=== PATIENT | male | born 1945 | race Caucasian/White ===

== ENCOUNTER 2020-05-15 10:34 | Outpatient (REF) | payer MEDICARE, OTHER, SELFPAY ==
--- NOTE | 2020-05-15 10:40 | CT_ITS ---
EXAMINATION: CT ABDOMEN AND PELVIS WITHOUT CONTRAST CLINICAL INFORMATION: Abdominal pain COMPARISON: None TECHNIQUE: Multidetector volumetric imaging was performed from the superior aspect of the liver through the pubic symphysis. Sagittal and coronal reformatted images were obtained on the technologist's workstation. This CT examination was performed using dose optimization techniques as appropriate, variously including the following: *Automated exposure control *Adjustment of mA and/or kV according to patient size (this includes techniques or standardized protocols for targeted exams where dose is matched to indication/reason for exam; i.e. extremities or head) *Use of iterative reconstruction technique DLP: 7-1 mGy-cm FINDINGS: LUNG BASES: The visualized lung bases are unremarkable. LIVER, GALLBLADDER, AND BILIARY TREE: There are multiple low-attenuation liver lesions suggestive of cysts. The liver is otherwise unremarkable. There are gallstones in the gallbladder. There is no biliary duct dilatation. PANCREAS: Unremarkable. SPLEEN: The spleen is slightly enlarged measuring 14 cm in length. ADRENAL GLANDS: Unremarkable. KIDNEYS AND URETERS: There are probable bilateral renal peripelvic cysts. There is a cortical cyst exophytic to the posterior upper pole of the right kidney. BLADDER: Not optimally distended. GASTROINTESTINAL TRACT: There is severe diverticulosis of the colon. There is wall thickening of the sigmoid colon and it is difficult to exclude mild diverticulitis. No evidence of obstruction perforation or abscess is seen. The small bowel is normal. The appendix is normal. The stomach is normal. ABDOMINAL WALL: There are small umbilical and left inguinal hernias containing fat. LYMPH NODES: Normal. VASCULAR: There is evidence of atherosclerotic disease. PELVIC VISCERA: Unremarkable. OSSEOUS STRUCTURES: There are degenerative changes of the spine and mild scoliosis. CT/CT abdomen pelvis wo con IMPRESSION: Severe diverticular disease of the colon. There is wall thickening of the sigmoid colon and it is difficult to exclude mild diverticulitis. Liver and bilateral renal cysts. Gallstones.
== END 2020-05-15 10:35 | disposition home or self-care (01) ==
LOC: HO.CT 10:34
PROVIDERS: PCP Internal Medicine; Visit Provider Internal Medicine
DX: R10.0 Acute abdomen (principal)
CPT/HCPCS: 74176

== ENCOUNTER 2020-07-02 08:22 | Day surgery (SDC) | payer MEDICARE, OTHER, SELFPAY ==
[2020-06-26 15:15] VITALS: BMI 35.9
--- NOTE | 2020-06-27 14:47 | HO.ANESPROP2 ---
Documented by User: Carina Blackwell 06/27/20 14:50 HPI - Anesthesia Eval Consult details Narrative: 74yo M for Upper Endoscopy and Colonoscopy Seen by cardiology 06/26/20 stable from coronary perspective [facility] Past Medical History Medical History (Updated 07/02/20 @ 09:11 by Nanda Ivory) Arthritis CAD (coronary artery disease) Diverticulosis Elevated cholesterol [place] (hard of hearing) HTN (hypertension) Myocardial infarction On beta leif at home Surgical History Surgical History H/O colonoscopy History of back surgery History of excision of pilonidal cyst History of heart artery stent History of PTCA History of vasectomy Social History Social History Are you a primary child care supervisor to a significant other at home: No Do you presently have visiting nurse or other home services: No Smoking Status: Former smoker Smoked in Last 30 Days: No Smoking Quit Date: 1985 Use of substances other than those prescribed or required for medical reasons: No Have you been hit, kicked, punched, or otherwise hurt by someone within the past year? If so, by whom?: No Advance Directives Information Provided: No Recently lost weight without trying: No Meds Allergies Allergy/AdvReac Type Severity Reaction Status Date / Time No Known Allergies Allergy Verified 06/26/20 15:21 [No Known Allergies*] Home Medications Medication Instructions Recorded Confirmed Type L. acidophilus-L. rhamnosus 1 cap PO DAILY 06/26/20 06/26/20 History [Probiotic] amlodipine 5 mg PO DAILY 06/26/20 06/26/20 History aspirin [Aspirin Low Dose] 81 mg PO DAILY 06/26/20 06/26/20 History atenolol 25 mg PO BID 06/26/20 07/02/20 History hydrochlorothiazide 25 mg PO DAILY 06/26/20 06/26/20 History lisinopril 40 mg PO DAILY 06/26/20 06/26/20 History multivitamin 1 tab PO DAILY 06/26/20 06/26/20 History omega-3 fatty acids-vitamin E 1 cap PO DAILY 06/26/20 06/26/20 History [Fish Oil] omeprazole 20 mg PO DAILY 06/26/20 06/26/20 History simvastatin 40 mg PO BEDTIME 06/26/20 06/26/20 History trazodone 50 mg PO BEDTIME 06/26/20 06/26/20 History Exam Exam Date and Time: June 27, 2020 144 Height,Weight and Vital Signs: Height 5 ft 8 in Weight 107.048 kg Narrative Narrative: EKG 06/26/20 SR@65, possible old SD and one PVC, minor nonspecific ST-T changes ECHO 06/2019 LV size is nml Mild conc LVH LV sys function is normal with an EF between 60-65% Indeterminate diastolic function LA mildly dilated Assessment and Plan Assessment Anesthesia Assessment: Chart Reviewed Documented by User: Nanda Ivory 07/02/20 09:12 [facility] Past Medical History Medical History (Updated 07/02/20 @ 09:11 by Nanda Ivory) Arthritis CAD (coronary artery disease) Diverticulosis Elevated cholesterol [place] (hard of hearing) HTN (hypertension) Myocardial infarction On beta leif at home Family History Family history of problems with anesthesia: No Surgical History Surgical History H/O colonoscopy History of back surgery History of excision of pilonidal cyst History of heart artery stent History of PTCA History of vasectomy History of Problems with Anesthesia: No Social History Social History Are you a primary child care supervisor to a significant other at home: No Do you presently have visiting nurse or other home services: No Smoking Status: Former smoker Smoked in Last 30 Days: No Smoking Quit Date: 1985 Use of substances other than those prescribed or required for medical reasons: No Have you been hit, kicked, punched, or otherwise hurt by someone within the past year? If so, by whom?: No Advance Directives Information Provided: No Recently lost weight without trying: No Meds Allergies Allergy/AdvReac Type Severity Reaction Status Date / Time No Known Allergies Allergy Verified 06/26/20 15:21 [No Known Allergies*] Home Medications Medication Instructions Recorded Confirmed Type L. acidophilus-L. rhamnosus 1 cap PO DAILY 06/26/20 06/26/20 History [Probiotic] amlodipine 5 mg PO DAILY 06/26/20 06/26/20 History aspirin [Aspirin Low Dose] 81 mg PO DAILY 06/26/20 06/26/20 History atenolol 25 mg PO BID 06/26/20 07/02/20 History hydrochlorothiazide 25 mg PO DAILY 06/26/20 06/26/20 History lisinopril 40 mg PO DAILY 06/26/20 06/26/20 History multivitamin 1 tab PO DAILY 06/26/20 06/26/20 History omega-3 fatty acids-vitamin E 1 cap PO DAILY 06/26/20 06/26/20 History [Fish Oil] omeprazole 20 mg PO DAILY 06/26/20 06/26/20 History simvastatin 40 mg PO BEDTIME 06/26/20 06/26/20 History trazodone 50 mg PO BEDTIME 06/26/20 06/26/20 History Exam Height,Weight and Vital Signs: Vital Signs Temp Pulse Resp BP Pulse Ox 07/02/20 08:43 97.4 F 60 16 140/86 H 96 Airway Mallampati Class: II TM Dist: >3cm Neck ROM: Full Heart: RRR Lungs: CTAB Assessment and Plan Assessment Anesthesia Assessment: Anesthesia Plan Discussed and Chart Reviewed Final Anesthetic Review ASA Class: III Final Preanesthetic Review: No Changes in Pt Med Stat, Meds/Allgs Chart Reviewed, Consent Obtained/Reviewed and Anes Risks/Benef Reviewed Patient Risk: Intermediate Procedure Risk: Low Assessment/Block/Sedation in SS: Assess/Block/Sedation-SS Anesthetic Plan Anesthetic Plan: MAC: Disposition: Standard PACU
[2020-07-02 08:43] VITALS: BP 140/86; PULSE 60; RESP 16; TEMP 36.3; O2SAT 96
--- NOTE | 2020-07-02 08:55 | PC.NURSE ---
Patient laying on left side for fleet enema. Patient attempted to use restroom with no results. Fleet administered. Tolerated well.
--- NOTE | 2020-07-02 09:04 | PC.NURSE ---
Patient used restroom following fleet enema. Output yellow liquid.
[2020-07-02] MEDS: Lactated Ringers 1,000 ML 100 ML IVCONT (09:08)
--- NOTE | 2020-07-02 09:09 | MHC.SHP ---
Pre-Procedural Eval Section B Chief Complaint: reflux Details of Present Illness: gerd, abnl ct scan colon Relevant Family History (Specify if Yes): No Relevant Social History: None Present Medications: see Short Stay Collaborative assessment Medical History: Significant History (see H&P no changes) History of Previous Operations: No relevant previous surgery Allergies: Allergies Allergy/AdvReac Type Severity Reaction Status Date / Time No Known Allergies Allergy Verified 06/26/20 15:21 [No Known Allergies*] Review of Systems Sugical H&P ROS: Negative: Constitution, Cardiovascular, Respiratory, Neurological, Psychiatric, Hem-Onc, Allergic/Immunologic, Gastrointestinal, Genitourinary, Musculoskeletal, Integumentary, Endocrine and Eyes/Ears/Nose/Throat Exam Surgical H&P Exam: Normal: HEENT, Normal: Heart, Normal: Lungs, Normal: Extremities, Normal: Abdomen, Normal: Skin and Normal: Neurological Plan Diagnosis/Plan: Unchanged I have reviewed the history and physical and performed a pertinent physical examination on my patient. No changes have occurred unless specified.
[2020-07-02] MEDS: Sodium Phosphate,Mono-Dibasic 133 ML ENEMA PR (09:11)
[2020-07-02 09:47] VITALS: BP 111/60; PULSE 51; RESP 12; TEMP 36.3; O2SAT 96
--- NOTE | 2020-07-02 09:57 | PM.OP ---
Brief Operative Note Date of Service: 07/02/20 Pre-op diagnosis: gerd, abnl ct scan Post-op diagnosis: same (diverticulosis) Procedure: egd colonoscopy Surgeon: Lalito Chung Anesthesia: MAC Estimated blood loss (mL): 5 Pathology: other (antral biopsies, ejg gastric polyps, ) Condition: stable Disposition: PACU
[2020-07-02 10:02] VITALS: BP 133/81; PULSE 56; RESP 20; O2SAT 97
--- NOTE | 2020-07-02 12:06 | HO.POSTANES ---
Post Anesthesia Evaluation Post Anesthesia Evaluation Vital Signs: Vital Signs Temp Pulse Resp BP Pulse Ox 07/02/20 10:02 97.4 F 56 20 133/81 97 07/02/20 09:47 97.4 F 51 12 111/60 96 07/02/20 08:43 97.4 F 60 16 140/86 H 96 Anesthesia: Monitored Mental Status: Awake Pain Control: Satisfactory Nausea/Vomiting: None Hydration: Adequate Anesthesia-Related Issues: No Anes. Related Issues
--- NOTE | 2020-07-02 19:40 | OP_ITS ---
SURGEON: Lalito Chung MD INDICATIONS: 1. Gastroesophageal reflux disease. 2. Abnormal CT scan of the colon and family history of colon cancer. PREOPERATIVE DIAGNOSIS: POSTOPERATIVE DIAGNOSIS: PROCEDURE PERFORMED: ESTIMATED BLOOD LOSS: COMPLICATIONS: ANESTHESIA: ASSISTANTS: SPECIMENS: PROCEDURES PERFORMED: 1. Upper endoscopy with biopsy. 2. Colonoscopy to the terminal ileum. MEDICATIONS: Monitored anesthesia care. DESCRIPTION OF PROCEDURE: History and physical performed. The risks and benefits of the procedure were explained to the patient. Informed consent was obtained. The patient was placed in left lateral decubitus position. A digital rectal exam was performed and was found to be normal. The Olympus pediatric video gastroscope was introduced into the esophagus, stomach, and duodenum. Examination was performed. The scope was removed. He was repositioned for colonoscopy. The above-mentioned rectal exam was performed. The Olympus pediatric video colonoscope was introduced into the rectum and advanced to the cecum without difficulty. The cecum was identified by transillumination, palpation, identification of the ileocecal valve. Examination was performed. The scope was removed. He tolerated both procedures well and was taken to recovery room in stable condition. FINDINGS: UPPER ENDOSCOPY: Esophagus: The esophagus was normal. There was no esophagitis. Stomach: The stomach showed no evidence of masses, ulcers, or tumors. There were multiple less than 10 mm or less gastric polyps present in the body and fundus. Two of these were biopsied. Biopsies were also obtained from the EG junction and antrum. Duodenum: The bulb and second portion were normal. COLONOSCOPY: The terminal ileum was examined and appeared normal. The visualized colonic mucosa was normal. There was a large amount of liquid stool, which was suctioned. There was some formed stool as well, which limited sensitivity examination for detection of small polyps. No polyps were identified. There was extensive diverticulosis throughout the colon. Retroflexed examination was remarkable for internal hemorrhoids. IMPRESSION: 1. Gastroesophageal reflux disease. 2. Diverticulosis. RECOMMENDATION: 1. Followup colonoscopy is recommended in 5 years because of family history, this is optional based on age. 2. Follow up the biopsy results from the endoscopy. MD TIERRA Bhatia/MARCOL / [id number]
== END 2020-07-02 11:15 | disposition home or self-care (01) ==
PROVIDERS: PCP Internal Medicine; Visit Provider Internal Medicine Gastroenterology
PROC: (CPT 45378; principal; 2020-07-02 09:30)
DX: R93.3 Abnormal findings on diagnostic imaging of other parts of digestive tract (principal); K21.9 Gastro-esophageal reflux disease without esophagitis; K31.7 Polyp of stomach and duodenum; K57.30 Diverticulosis of large intestine without perforation or abscess without bleeding; K64.8 Other hemorrhoids; I10 Essential (primary) hypertension; I25.2 Old myocardial infarction; Z79.82 Long term (current) use of aspirin; Z79.899 Other long term (current) drug therapy; Z80.0 Family history of malignant neoplasm of digestive organs
CPT/HCPCS: 45378; 43239; 88305; 88342

== ENCOUNTER 2021-11-27 08:33 | Outpatient (REF) | payer MEDICARE, OTHER, SELFPAY ==
[2021-11-27 08:51] LABS: MANUAL DIFF FLAG NO
[2021-11-27 09:02] LABS: Basophils Percent Auto 0.6 % (0-2); Eosinophils Absolute Auto 0.1 X10*3/uL (0.0-0.4); Eosinophils Percent Auto 1.8 % (0-4); Hematocrit 51.9 % (42.0-52.0); Hemoglobin 17.8 g/dl (14.0-18.0); Imm Gran Abs Auto 0.01 X10*3/uL (0.00-0.03); Imm Gran Pct Auto 0.1 % (0.0-0.4); Lymphocytes Absolute Auto 1.1 X10*3/uL (1.2-4.9); Lymphocytes Percent Auto 15.4 % (20-40); Mean Corpuscular HGB Conc 34.3 g/dl (31.0-36.0); Mean Corpuscular Volume 87.4 fL (80.0-98.0); Mean Platelet Volume 10.1 fL (9.4-12.4); Monocytes Absolute Auto 0.7 X10*3/uL (0.1-1.2); Neutrophils Absolute Auto 5.1 x10*3/uL (2.0-8.3); Neutrophils Percent Auto 72.1 % (45-73); Platelet Count 190 X10*3/uL (160-400); Red Blood Count 5.94 X10*6/uL (4.60-5.80); Red Cell Distribution Width 13.5 % (11.0-16.0); White Blood Count 7.1 X10*3/uL (4.8-10.8)
[2021-11-27 09:10] LABS: Estimated Average Glucose 117 mg/dL; Hemoglobin A1c % 5.7 %
[2021-11-27 09:41] LABS: Alanine Aminotransferase 18 U/L (0-40); Albumin Level 4.1 g/dL (3.5-5.0); Alkaline Phosphatase 70 U/L (39-117); Anion Gap 11 (12-20); Aspartate Amino Transferase 21 U/L (5-37); Bilirubin Total 0.8 mg/dL (0.0-1.0); Blood Urea Nitrogen 25 mg/dL (9-16); Calcium 9.4 mg/dL (8.4-10.2); Carbon Dioxide 27 mmol/L (22-29); Chloride 105 mmol/L (96-108); Cholesterol 157 mg/dL; Estimated Glomerular Filt Rate > 60; Glucose Fasting 120 mg/dL (60-99); HDL Cholesterol 44 mg/dL; LDL Cholesterol Calculated 91 mg/dl; Potassium 4.1 mmol/L (3.3-5.1); Sodium 139 mmol/L (135-145); Triglycerides 113 mg/dL
[2021-11-27 09:52] LABS: Prostate Specific Antigen 0.85 ng/mL (<0.05-4.0)
== END 2021-11-27 08:34 | disposition home or self-care (01) ==
LOC: HO.LAB 08:33
PROVIDERS: PCP Internal Medicine; Visit Provider Internal Medicine
DX: Z12.5 Encounter for screening for malignant neoplasm of prostate (principal); E78.00 Pure hypercholesterolemia, unspecified; R73.03 Prediabetes; I10 Essential (primary) hypertension; I25.10 Atherosclerotic heart disease of native coronary artery without angina pectoris
CPT/HCPCS: 36415; 80053; 80061; 83036; 84153; 85025

== ENCOUNTER 2022-07-03 14:45 | Outpatient (REF) | payer MEDICARE, OTHER, SELFPAY ==
[2022-07-03 14:57] LABS: MANUAL DIFF FLAG NO
[2022-07-03 15:55] LABS: Basophils Absolute Auto 0.1 X10*3/uL (0.0-0.2); Basophils Percent Auto 0.5 % (0-2); Eosinophils Absolute Auto 0.1 X10*3/uL (0.0-0.4); Hematocrit 52.6 % (42.0-52.0); Hemoglobin 17.7 g/dl (14.0-18.0); Imm Gran Abs Auto 0.04 X10*3/uL (0.00-0.03); Imm Gran Pct Auto 0.4 % (0.0-0.4); Lymphocytes Absolute Auto 1.6 X10*3/uL (1.2-4.9); Lymphocytes Percent Auto 16.8 % (20-40); Mean Corpuscular HGB Conc 33.7 g/dl (31.0-36.0); Mean Corpuscular Volume 89.2 fL (80.0-98.0); Mean Platelet Volume 10.4 fL (9.4-12.4); Monocytes Absolute Auto 0.9 X10*3/uL (0.1-1.2); Monocytes Percent Auto 9.2 % (2-11); Neutrophils Absolute Auto 6.8 x10*3/uL (2.0-8.3); Neutrophils Percent Auto 72.1 % (45-73); Platelet Count 187 X10*3/uL (160-400); Red Cell Distribution Width 13.2 % (11.0-16.0); White Blood Count 9.4 X10*3/uL (4.8-10.8)
[2022-07-03 16:05] LABS: Estimated Average Glucose 120 mg/dL; Hemoglobin A1c % 5.8 %
[2022-07-03 16:30] LABS: Alanine Aminotransferase 18 U/L (0-40); Albumin Level 4.1 g/dL (3.5-5.0); Alkaline Phosphatase 90 U/L (39-117); Anion Gap 13 (12-20); Aspartate Amino Transferase 19 U/L (5-37); Bilirubin Total 0.6 mg/dL (0.0-1.0); Blood Urea Nitrogen 20 mg/dL (9-16); Calcium 9.4 mg/dL (8.4-10.2); Carbon Dioxide 28 mmol/L (22-29); Chloride 105 mmol/L (96-108); Estimated Glomerular Filt Rate > 60; Glucose Random 109 mg/dL (60-115); Potassium 3.9 mmol/L (3.3-5.1); Sodium 142 mmol/L (135-145); Total Protein 6.8 g/dL (6.5-8.0)
[2022-07-03 16:53] LABS: Free T4 (Free Thyroxine) 1.09 ng/dL (0.71-1.85); Thyroid Stimulating Hormone 1.41 uIU/mL (0.32-4.0); Vitamin B12 385 pg/mL (200-900)
== END 2022-07-03 14:46 | disposition home or self-care (01) ==
LOC: HO.LAB 14:45
PROVIDERS: PCP Internal Medicine; Visit Provider Internal Medicine
DX: R53.83 Other fatigue (principal); I10 Essential (primary) hypertension; I25.10 Atherosclerotic heart disease of native coronary artery without angina pectoris; K21.9 Gastro-esophageal reflux disease without esophagitis; R73.03 Prediabetes
CPT/HCPCS: 36415; 80053; 82607; 83036; 84439; 84443; 85025

== ENCOUNTER 2022-08-03 14:57 | Outpatient (REF) | payer MEDICARE, OTHER, SELFPAY ==
--- NOTE | ~2022-08-03 | CT_ITS ---
EXAMINATION: CT SINUS WITHOUT CONTRAST CLINICAL INFORMATION: Sinus congestion. Chronic rhinitis. COMPARISON: None available. TECHNIQUE: Axial 2 mm thin and reformatted 2 mm thin sagittal and coronal images of sinuses were obtained. This CT examination was performed using dose optimization techniques as appropriate, variously including the following: *Automated exposure control *Adjustment of mA and/or kV according to patient size (this includes techniques or standardized protocols for targeted exams where dose is matched to indication/reason for exam; i.e. extremities or head) *Use of iterative reconstruction technique DLP: 97 mGy-cm FINDINGS: There is normal aeration of bilateral paranasal sinuses and mastoid air cells. There is no mucoperiosteal thickening or air-fluid levels. The bony sinus bangura are intact. Bilateral ostiomeatal complex and frontoethmoidal recesses are widely patent. The nasal cavity and nasopharyngeal area is widely patent. There is mild deviation nasal septum to the right. A small nasal spur. The turbinates are symmetrical. Bilateral optic globe, optic nerve and periorbital soft tissues are normal. The mastoid air cells are well-aerated. Bilateral TM joints are symmetric and normal. The maxillofacial and nasal bone appears normal. The soft tissues are normal. CT/CT sinus wo IV con IMPRESSION: Mild deviation of nasal septum to the right with a small nasal spur. The paranasal sinuses and mastoid air cells are clear.
== END 2022-08-03 14:58 | disposition home or self-care (01) ==
LOC: HO.CT 14:57
PROVIDERS: PCP Internal Medicine; Visit Provider Internal Medicine
DX: R09.81 Nasal congestion (principal)
CPT/HCPCS: 70486

== ENCOUNTER 2022-12-07 10:43 | Outpatient (REF) | payer MEDICARE, OTHER, SELFPAY ==
[2022-12-07 13:15] LABS: MANUAL DIFF FLAG NO
[2022-12-07 13:24] LABS: Basophils Percent Auto 0.5 % (0-2); Eosinophils Percent Auto 0.5 % (0-4); Hematocrit 47.6 % (42.0-52.0); Hemoglobin 15.7 g/dl (14.0-18.0); Imm Gran Abs Auto 0.03 X10*3/uL (0.00-0.03); Imm Gran Pct Auto 0.4 % (0.0-0.4); Lymphocytes Absolute Auto 0.9 X10*3/uL (1.2-4.9); Mean Corpuscular Hemoglobin 28.9 pg (27.0-33.0); Mean Corpuscular Volume 87.5 fL (80.0-98.0); Mean Platelet Volume 10.1 fL (9.4-12.4); Monocytes Absolute Auto 0.9 X10*3/uL (0.1-1.2); Monocytes Percent Auto 10.5 % (2-11); Neutrophils Absolute Auto 6.2 x10*3/uL (2.0-8.3); Neutrophils Percent Auto 77.1 % (45-73); Platelet Count 231 X10*3/uL (160-400); Red Blood Count 5.44 X10*6/uL (4.60-5.80); Red Cell Distribution Width 13.3 % (11.0-16.0); White Blood Count 8.1 X10*3/uL (4.8-10.8)
[2022-12-07 13:31] LABS: Rheumatoid Factor 15.9 IU/mL (<15.0)
[2022-12-07 13:36] LABS: Anion Gap 12 (12-20); Blood Urea Nitrogen 20 mg/dL (9-16); C Reactive Protein 5.67 mg/dL (< or = 0.50); Calcium 10.1 mg/dL (8.4-10.2); Carbon Dioxide 28 mmol/L (22-29); Chloride 103 mmol/L (96-108); Estimated Glomerular Filt Rate > 60; Glucose Random 138 mg/dL (60-115); Potassium 4.2 mmol/L (3.3-5.1); Sodium 139 mmol/L (135-145)
[2022-12-07 14:22] LABS: Erythrocyte Sedimentation Rate 38 MM/HR (0-15)
[2022-12-09 11:58] LABS: Lyme Abs Screen <0.90 index
[2022-12-11 13:47] LABS: Anti Nuclear Antibody Screen NEGATIVE (NEGATIVE)
== END 2022-12-07 10:44 | disposition home or self-care (01) ==
LOC: HO.10HDL 10:43
PROVIDERS: Visit Provider Internal Medicine
DX: M25.511 Pain in right shoulder (principal); M25.512 Pain in left shoulder; I48.0 Paroxysmal atrial fibrillation; I10 Essential (primary) hypertension
CPT/HCPCS: 36415; 80048; 85025; 85652; 86038; 86140; 86431; 86617; 86618

== ENCOUNTER 2023-03-15 11:50 | Outpatient (REF) | payer MEDICARE, OTHER, SELFPAY ==
[2023-03-15 13:11] LABS: MANUAL DIFF FLAG NO
[2023-03-15 13:17] LABS: Basophils Percent Auto 0.3 % (0-2); Eosinophils Percent Auto 0.1 % (0-4); Hematocrit 51.4 % (42.0-52.0); Hemoglobin 17.1 g/dl (14.0-18.0); Imm Gran Abs Auto 0.05 X10*3/uL (0.00-0.03); Imm Gran Pct Auto 0.4 % (0.0-0.4); Lymphocytes Absolute Auto 0.7 X10*3/uL (1.2-4.9); Lymphocytes Percent Auto 5.8 % (20-40); Mean Corpuscular HGB Conc 33.3 g/dl (31.0-36.0); Mean Corpuscular Hemoglobin 29.4 pg (27.0-33.0); Mean Corpuscular Volume 88.3 fL (80.0-98.0); Mean Platelet Volume 10.6 fL (9.4-12.4); Monocytes Absolute Auto 0.5 X10*3/uL (0.1-1.2); Monocytes Percent Auto 4.5 % (2-11); Neutrophils Absolute Auto 10.4 x10*3/uL (2.0-8.3); Neutrophils Percent Auto 88.9 % (45-73); Platelet Count 220 X10*3/uL (160-400); Red Blood Count 5.82 X10*6/uL (4.60-5.80); White Blood Count 11.7 X10*3/uL (4.8-10.8)
[2023-03-15 13:23] LABS: Estimated Average Glucose 126 mg/dL
[2023-03-15 13:31] LABS: Alanine Aminotransferase 27 U/L (0-40); Albumin Level 4.1 g/dL (3.5-5.0); Alkaline Phosphatase 71 U/L (39-117); Anion Gap 11 (12-20); Aspartate Amino Transferase 23 U/L (5-37); Bilirubin Total 0.5 mg/dL (0.0-1.0); Blood Urea Nitrogen 21 mg/dL (9-16); C Reactive Protein 1.07 mg/dL (< or = 0.50); Calcium 9.8 mg/dL (8.4-10.2); Carbon Dioxide 26 mmol/L (22-29); Chloride 106 mmol/L (96-108); Estimated Glomerular Filt Rate > 60; Glucose Random 140 mg/dL (60-115); Potassium 4.4 mmol/L (3.3-5.1); Sodium 139 mmol/L (135-145); Total Protein 7.4 g/dL (6.5-8.0)
[2023-03-15 13:58] LABS: Erythrocyte Sedimentation Rate 7 MM/HR (0-15)
== END 2023-03-15 11:51 | disposition home or self-care (01) ==
LOC: HO.10HDL 11:50
PROVIDERS: Visit Provider Internal Medicine
DX: I48.0 Paroxysmal atrial fibrillation (principal); I25.10 Atherosclerotic heart disease of native coronary artery without angina pectoris; I10 Essential (primary) hypertension; R73.03 Prediabetes; M35.3 Polymyalgia rheumatica
CPT/HCPCS: 36415; 80053; 82550; 83036; 85025; 85652; 86140

== ENCOUNTER 2023-08-07 08:24 | Outpatient (REF) | payer MEDICARE, OTHER, SELFPAY ==
[2023-08-07 08:53] LABS: MANUAL DIFF FLAG NO
[2023-08-07 09:15] LABS: Basophils Percent Auto 0.5 % (0-2); Eosinophils Absolute Auto 0.1 X10*3/uL (0.0-0.4); Eosinophils Percent Auto 1.3 % (0-4); Hematocrit 50.6 % (42.0-52.0); Hemoglobin 17.2 g/dl (14.0-18.0); Imm Gran Abs Auto 0.03 X10*3/uL (0.00-0.03); Imm Gran Pct Auto 0.4 % (0.0-0.4); Lymphocytes Absolute Auto 1.2 X10*3/uL (1.2-4.9); Lymphocytes Percent Auto 14.5 % (20-40); Mean Corpuscular Volume 88.2 fL (80.0-98.0); Mean Platelet Volume 10.2 fL (9.4-12.4); Monocytes Absolute Auto 0.8 X10*3/uL (0.1-1.2); Monocytes Percent Auto 9.7 % (2-11); Neutrophils Absolute Auto 6.3 x10*3/uL (2.0-8.3); Neutrophils Percent Auto 73.6 % (45-73); Platelet Count 170 X10*3/uL (160-400); Red Blood Count 5.74 X10*6/uL (4.60-5.80); Red Cell Distribution Width 13.3 % (11.0-16.0); White Blood Count 8.6 X10*3/uL (4.8-10.8)
[2023-08-07 09:20] LABS: Estimated Average Glucose 123 mg/dL; Hemoglobin A1c % 5.9 % (<6.0)
[2023-08-07 09:47] LABS: Alanine Aminotransferase 24 U/L (0-40); Alkaline Phosphatase 75 U/L (39-117); Anion Gap 11 (12-20); Aspartate Amino Transferase 20 U/L (5-37); Bilirubin Total 0.8 mg/dL (0.0-1.0); Blood Urea Nitrogen 22 mg/dL (9-16); Calcium 9.4 mg/dL (8.4-10.2); Carbon Dioxide 27 mmol/L (22-29); Chloride 106 mmol/L (96-108); Cholesterol 153 mg/dL (<200); Estimated Glomerular Filt Rate > 60; Glucose Random 127 mg/dL (60-115); HDL Cholesterol 39 mg/dL (>40); LDL Cholesterol Calculated 78 mg/dL (<100); Potassium 3.9 mmol/L (3.3-5.1); Sodium 140 mmol/L (135-145); Triglycerides 180 mg/dL (<150)
[2023-08-07 10:08] LABS: Creatinine Urine 206.43 mg/dL; Microalbum/Creatinine Ratio Ur 12.1 ug/mg cr (<30)
== END 2023-08-07 08:25 | disposition home or self-care (01) ==
LOC: HO.LAB 08:24
PROVIDERS: PCP Internal Medicine; Visit Provider Internal Medicine
DX: I25.10 Atherosclerotic heart disease of native coronary artery without angina pectoris (principal); I10 Essential (primary) hypertension; E78.00 Pure hypercholesterolemia, unspecified; I48.0 Paroxysmal atrial fibrillation; N40.0 Benign prostatic hyperplasia without lower urinary tract symptoms; Z12.5 Encounter for screening for malignant neoplasm of prostate
CPT/HCPCS: 36415; 80053; 80061; 82043; 82570; 83036; 84153; 85025

== ENCOUNTER 2024-03-08 15:57 | Outpatient (REF) | payer MEDICARE, OTHER, SELFPAY ==
[2024-03-08 16:15] LABS: MANUAL DIFF FLAG NO
[2024-03-08 17:08] LABS: Basophils Percent Auto 0.5 % (0-2); Eosinophils Absolute Auto 0.1 X10*3/uL (0.0-0.4); Eosinophils Percent Auto 1.3 % (0-4); Hematocrit 48.6 % (42.0-52.0); Hemoglobin 16.6 g/dl (14.0-18.0); Imm Gran Abs Auto 0.02 X10*3/uL (0.00-0.03); Imm Gran Pct Auto 0.3 % (0.0-0.4); Lymphocytes Absolute Auto 1.1 X10*3/uL (1.2-4.9); Lymphocytes Percent Auto 15.3 % (20-40); Mean Corpuscular HGB Conc 34.2 g/dl (31.0-36.0); Mean Corpuscular Hemoglobin 30.1 pg (27.0-33.0); Mean Platelet Volume 10.4 fL (9.4-12.4); Monocytes Absolute Auto 0.8 X10*3/uL (0.1-1.2); Monocytes Percent Auto 10.8 % (2-11); Neutrophils Absolute Auto 5.4 x10*3/uL (2.0-8.3); Neutrophils Percent Auto 71.8 % (45-73); Platelet Count 194 X10*3/uL (160-400); Red Blood Count 5.52 X10*6/uL (4.60-5.80); Red Cell Distribution Width 13.3 % (11.0-16.0); White Blood Count 7.5 X10*3/uL (4.8-10.8)
[2024-03-08 17:40] LABS: Alanine Aminotransferase 13 U/L (0-40); Albumin Level 3.9 g/dL (3.5-5.0); Alkaline Phosphatase 79 U/L (39-117); Anion Gap 12 (12-20); Aspartate Amino Transferase 17 U/L (5-37); Bilirubin Total 0.5 mg/dL (0.0-1.0); Blood Urea Nitrogen 17 mg/dL (9-16); Calcium 9.4 mg/dL (8.4-10.2); Carbon Dioxide 27 mmol/L (22-29); Chloride 105 mmol/L (96-108); Estimated Glomerular Filt Rate > 60; Glucose Random 99 mg/dL (60-115); Potassium 3.7 mmol/L (3.3-5.1); Sodium 140 mmol/L (135-145)
[2024-03-08 17:53] LABS: Estimated Average Glucose 111 mg/dL; Hemoglobin A1C 151.9712 umol/L; Hemoglobin A1c % 5.5 % (<6.0); Total Hemoglobin (HGBA1C) 4123.9744 umol/L
== END 2024-03-08 15:58 | disposition home or self-care (01) ==
LOC: HO.LAB 15:57
PROVIDERS: PCP Internal Medicine; Visit Provider Internal Medicine
DX: I10 Essential (primary) hypertension (principal); R73.03 Prediabetes; N40.1 Benign prostatic hyperplasia with lower urinary tract symptoms; N18.9 Chronic kidney disease, unspecified
CPT/HCPCS: 36415; 80053; 83036; 85025

== ENCOUNTER 2024-08-30 14:38 | Outpatient (AMB) | payer MEDICARE, OTHER, SELFPAY ==
--- NOTE | 2024-08-30 14:43 | A.OFFPC_ITS ---
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 (hard of hearing) On beta leif at home Elevated cholesterol Myocardial infarction CAD (coronary artery disease) HTN (hypertension) Surgical History History of vasectomy History of excision of pilonidal cyst History of back surgery H/O colonoscopy History of heart artery stent History of PTCA Family History (Updated 08/30/24 @ 15:36 by Jojo Hutchinson CMA) Mother No problems noted. Father No problems noted. Social History Housing: House Are you a primary resident care supervisor to a significant other at home: No Do you presently have visiting nurse or other home services: No Patient Tobacco Use Status: Former Tobacco user e-Cigarette/Vaping Use: Former Use service: No Current occupational status: retired Cognitive needs: No Hearing needs: Yes (bilateral) Vision needs: Yes (reading glasses) Questionnaire PHQ-9 Over the last 2 weeks, how often have you been bothered by any of the following problems? 1. Little interest or pleasure in doing things: not at all 2. Feeling down, depressed, or hopeless: not at all 3. Trouble falling or staying asleep, or sleeping too much: not at all 4. Feeling tired or having little energy: not at all 5. Poor appetite or overeating: not at all 6. Feeling bad about yourself - or that you are a failure or have let yourself or your family down: not at all 7. Trouble concentrating on things, such as reading the newspaper or watching television: not at all 8. Moving or speaking so slowly that other people could have noticed. Or the opposite - being so fidgety or restless that you have been moving around a lot more than usual: not at all 9. Thoughts that you would be better off or of hurting yourself in some way: not at all Total score: 0 Source: Developed by Drs. Dakota Dee, Radha Hu, Jose Enrique Lambert and colleagues, with an educational estephania from [employer]. Thrive Questionnaire Date Thrive assessed: 08/30/24 I am a: Patient Within the past 12 months, did the food you bought not last and you didn't have the money to get more?: Never true Within the past 12 months, did you worry whether your food would run out before you got money to buy more?: Never true Do you have trouble paying for medicines?: No Do you have trouble getting transportation to medical appointments?: No Do you have trouble paying your heating and electricity bill?: No Do you have trouble taking care of your child, family member or friend?: No Do you have trouble with day-to-day activities such as bathing, preparing meals, shopping, managing finances, etc.?: No Are you currently unemployed and looking for a job?: No Are you interested in more education?: No THRIVE Score: 0 AUDIT C Alcohol Use Questionnaire (AUDIT-C) 1. How often do you have a drink containing alcohol?: Monthly or less 2. How many drinks containing alcohol do you have on a typical day when you are drinking?: 1 or 2 3. How often do you have six or more drinks on one occasion?: Less than monthly Total Score: 2 WILLIE-7 AMB Questionnaire WILLIE-7 Date WILLIE - 7 assessed: 08/30/24 Feeling nervous, anxious, or on edge: 0 = Not at all Not being able to stop or control worryin = Not at all Worrying too much about different things: 0 = Not at all Trouble relaxin = Not at all Being so restless that it is hard to sit still: 0 = Not at all Becoming easily annoyed or irritable: 0 = Not at all Feeling afraid as if something awful might happen: 0 = Not at all Total WILLIE-7 score (0-4 normal; 5-9 mild; 10-14 moderate; 15-21 severe): 0 Source: Developed by Drs. Dakota Dee, Radha Hu, Jose Enrique Lambert and colleagues, with an educational estephania from [employer]. Physical exam (Primary Care) Vital Signs: Last Vital Signs Temp 97.9 F 08/30/24 14:44 Pulse 54 08/30/24 14:44 BP 120/80 08/30/24 14:44 Pulse Ox 98 08/30/24 14:44 Oxygen Delivery Method Room Air 08/30/24 14:44 BMI result Body Mass Index 32.2 Tobacco/Smoking Status: Tobacco use Status Tobacco use date assessed 08/30/24 08/30/24 14:45 Patient Tobacco Use Status Former Tobacco user 08/30/24 15:37 e-Cigarette/Vaping Use Former Use 08/30/24 15:37 PHQ-9: PHQ-9 Score PHQ-9: Total score 0 08/30/24 15:37 Thrive Assessment: Date of Thrive Assessment Date Thrive assessed 08/30/24 08/30/24 14:45 Coding Level of Care Code New Pt Level 4 (72512) Complex EM visit Add On G2211 Diagnoses Rosacea L71.9 Atrial fibrillation I48.91 Assessment & Plan Assessment & Plan (1) Rosacea: Code(s): L71.9 - Rosacea, unspecified Category: Medical Plan: Metronidazole ordered (2) Atrial fibrillation: Code(s): I48.91 - Unspecified atrial fibrillation Category: Medical Plan: Patient sees a director trade at [facility]. Plan History of Present Illness The patient is a 78-year-old male presenting for a wellness visit with emphasis on the management of chronic conditions. He has a history of atrial fibrillation, for which he receives care from [facility], though he reports no current cardiac symptoms or concerns. In addition to his heart condition, he manages symptoms of rosacea and has expressed interest in updating his medication. In the past, the patient experienced myalgia and underwent treatment with p rednisone for nine months, which resulted in notable weight gain. He mentions his efforts to maintain his weight post-treatment. Despite vision issues that limit his ability to drive at night, under care from Dr. Segura, the patient reports maintaining independence in daily activities such as grocery shopping. The patient reports occasional alcohol use, having ceased tobacco products over 40 years ago, which he associates with improved longevity. 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 The patient also discloses a history of poor sleep quality since a life event, without significant appetite changes or breathing issues. 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 - Lives alone, independent in daily activities - Occasional alcohol use, ceased tobacco use 40 years ago - Has two sons, one is a Doctor of Physical Therapy and the other is a keno attendant - Reports difficulty with night driving due to eye issues - Experiences insomnia with poor sleep quality - Engaged in socialization through substitute teaching Review of Systems - Cardiovascular: Denies new cardiac symptoms - Eyes: Reports difficulty with night driving due to reflections - Musculoskeletal: Denies current myalgia symptoms - Neurology: Reports insomnia - Dermatology: Reports symptoms of rosacea - Respiratory: Denies breathing difficulties - Gastrointestinal: Denies changes in appetite - Genitourinary: Denies urinary incontinence Physical Exam General: Cooperative and healthy appearing Nutritional Appearance: Well nourished Orientation/consciousness: Patient oriented x3 Limitations: No limitations Head: Normal to inspection General: Appearance normal, both eyes and all related structures Neck: Normal visual inspection Chest: Normal palpation of entire chest wall Respiratory: Everything is good ormal respiratory effort Neurology: Patient oriented x3 Results Plan I discussed the management of atrial fibrillation and rosacea with the patient. The patient agrees to continue monitoring atrial fibrillation with Dr. Pearl. A prescription for rosacea treatment is being sent to his [facility] pharmacy. Maintaining night driving caution due to his vision complaints is recommended. The patient is encouraged to sustain his current active lifestyle and social engagements while monitoring sleep quality and considering periodic vision evaluations. Patient was informed and verbally consented to the use of an ambient scribe for clinic note documentation during this visit. Discussion Notes I reviewed the patient's current chronic conditions, primarily focusing on atrial fibrillation and rosacea treatment. It was emphasized that continuity of care with his director trade, Dr. Pearl, would be beneficial. A prescription for rosacea was also addressed and electronically sent to the pharmacy. I recommended maintaining awareness of his vision issues, especially in regards to night driving, and keeping a focus on social activities to support his mental and physical health. Follow-up in six months was suggested to reassess chronic conditions and wellness status. Patient Instructions - Continue collaboration with Dr. Pearl for atrial fibrillation management. - supervisor die casting the rosacea medication at the [facility] pharmacy on [facility]. - Exercise caution when driving at night; consider wearing anti-glare glasses if necessary. - Maintain an active lifestyle and engage in social activities to support overall wellbeing. - Monitor sleep quality and consider factors that could be impacting insomnia. Orders: Orders Liver Panel Today I48.91 - Unspecified atrial fibrillation, L71.9 - Rosacea, unspecified Thyroid Stimulating Hormone Today I48.91 - Unspecified atrial fibrillation, L71.9 - Rosacea, unspecified Basic Metabolic Panel Today I48.91 - Unspecified atrial fibrillation, L71.9 - Rosacea, unspecified Complete Blood Count no Diff Today I48.91 - Unspecified atrial fibrillation, L 71.9 - Rosacea, unspecified Lipid Panel Today I48.91 - Unspecified atrial fibrillation, L71.9 - Rosacea, unspecified UA and rflx microscopic Today I48.91 - Unspecified atrial fibrillation, L71.9 - Rosacea, unspecified Medications: New metronidazole 0.75% 1 appl topical BEDTIME 45 grams 1RF
[2024-08-30 14:44] VITALS: BP 120/80; PULSE 54; TEMP 36.6; O2SAT 98; BMI 32.2
--- OUTSIDE RECORDS SUMMARY | 2024-08-30 16:51 | XMS_ITS | Data Portability ---
Author Organization [place] [facility] Enriquez [facility]ONE [place] Address [address] [place] [address] Care Team Providers Care Gauge Inspector Name Role Phone MARY BOLAND Primary Care Provider Assessment Encounter Date Assessment Date Assessment LastModified by Organization Details LastModified Time 12/04/2022 12/04/2022 The patient's history and physical exam are consistent with bilateral, right greater than left impingement syndrome. The space between the undersurface of the acromion and above the humeral head is the impingement interval. Any condition that narrows this interval causes impingement, including the presence of subacromial bone spurs. There are 3 stages of impingement- stages I, II, and III. Stage I impingement occurs in young patients and is likely a result of overuse. Stage II impingement occurs in slightly older patients and likely results in tendonitis or partial tearing of the rotator cuff. Stage III impingement generally occurs in patients older than 50 and is associated with rotator cuff tearing. Conservative treatment options include avoiding aggravating activities, NSAIDS, home exercises or physical therapy, cortisone injections, or further testing. Operative interventions are reserved for patients who fail conservative treatment. [email or web address] Not available 12/04/2022 12:30:28 Plan of Treatment Reminders Order Date Submit Date Provider Last Modified By Organization Details Last Modified Time Details Appointments None record ed. Lab None record ed. Referral None record ed. Procedures None record ed. Surgeries None record ed. Imaging XR, should er, 2 or more view 023 12/05/19 23 [email or web address] 1 [facility], [address], [address], [place], [address], 3 10:11:56 Medication Orders None record ed. Patient TargetsNo targets recorded. Patient Instructions Encounter Date Encounter Id Patient Instructions Last Modified By Organization Details Last Modified Time 12/04/2022 [id number] Views of the {{Right* Left Cornelius ateral}} shoulder were obtained in the {{[place]* Freddie }} office including AP, Grashey and outlet views. Normal bone mineralization. Some decrease in the subacromial space. No evidence of acute injury or fracture. Interpretation by: Aris Cano PA-C Not available 12/04/2022 12:30:58 Reason for Referral None Reported. Problems Name Problem SNOMED Code Status Onset Date Resolution Date Notes Provider Name and Address Organization Details Recorded Time Impingement syndrome of right shoulder region 4544469349590 02 Active 2022 ARIS CANO PA-C [address], [place], [address], [place] [facility], P 3 12:29:45 Pain of right shoulder joint 7033508984140 9100 Active 2022 ARIS CANO PA-C [address], [place], [address], [place] [facility], [facility] 3 12:29:48 Problem Notes None recorded. Procedures Surgical History Date Name Laterality Status Provider Name and Address Organization Details Recorded Time Ankle/Foot Surgery completed Humza Ho [facility], [facility] 12/04/2022 11:00:29 Imaging Results None recorded. Procedure Notes None recorded. Medical Equipment None Reported. Allergies No known drug allergies Medications Name Sig Start Date Stop Date Status Note LastModified by Organization Details LastModified Time trazodone 50 mg tablet TAKE 1 TABLET BY MOUTH EVERYDAY AT BEDTIME active Not Available Not Available No t Available atenolol 25 mg tablet active Not Available Not Available No t Available amlodipine 5 mg tablet active Not Available Not Available Not Available simvastatin 40 mg tablet active Not Available Not Available Not Available omeprazole 20 mg capsule,del ayed release active Not Available Not Available Not Available hydrochloro thiazide 25 mg tablet active Not Available Not Available No t Available lisinopril 40 mg tablet active Not Available Not Available Not Available rosuvastati n 20 mg tablet 12/04 completed Not Available Not Available Not Available Eliquis 5 mg tablet active Not Available Not Available No t Available Eliquis DVT-PE Treatment 30-Day Starter 5 mg (74 tablets) in dose pack TAKE 2 TABLETS BY MOUTH 2 TIMES A DAY FOR 1 WEEK, TAKE 1 TABLET BY MOUTH TWICE DAILY FOR 23 DAYS active Not Available Not Available No t Available Paxlovid 150 mg-100 mg tablets in a dose pack (Renal Dose) TAKE 2 TABLETS BY MOUTH TWICE A DAY FOR 5 DAYS 12/04 completed Not Available Not Available Not Available Vitals Date Recorded Body weight Body mass index (BMI) Body height Provider Name and Address Organization Details Last Updated DateTime 12/04/2022 93574.32 g 34.5 kg/m2 170.18 cm Humza [place] [facility], 12/04/2022 10:59:37 Social History Question Answer Notes LastModified by Organizat ion Details LastModified Time Tobacco Smoking Status Former Smoker Humza Ho null, [place] [facility] 12/04/2022 11:00:05 What Is Your Level Of Alcohol Consumption? Occasional [email or web address] Information not available 12/04/2022 Sex: Unknown Functional Status None recorded. Mental Status None recorded. Family History Nothing Reported. Medical History Condition Response Heart Attack ([place]) Y Hypertension Y Past Encounters Encounter ID Performer Location Encounter Start Date Encounter Closed Date Diagnosis/Indication Diagnosis SNOMED-CT Code Diagnosis ICD10 Code Diagnosis Note [id number] Devonte Loera MD [facility] [address] [place] [phone] 12/04/2022 10:26:59 12/04/2022 11:36:36 Pain of right shoulder joint [id number] 8517988 M25.511 Impingemen t syndrome of right shoulder region 2682139148 86917 M75.41 Health Concerns Section Related Observation LastModified by Organization Detai ls LastModified Time None Recorded Concern Status LastModified by Organization Details LastModified Time None Recorded Advance Directives Directive None Recorded Payers Encounter Date Sequence Insurance Name Policy Number Policy Quiñones Covered Member ID Quiñones Member ID Guarantor Name 12/04/2022 1 MEDICARE B-CT: NGS John Trevizo [id number] John Trevizo 12/04/2022 2 [facility] [id number] John Trevizo [id number] Josephinekarine Joseline Notes Date Note Type Note Provider Name and Address Organization Details Recorded Time 12/04/2022 text/html Patient is a 77-year-old male who presents today with 1 month of right greater than left shoulder pain. He has a past medical history significant for previous bicep tendon ruptures. He does exercise on a regular basis. He started to have discomfort in his shoulders without obvious cause. He admits to having some discomfort at night. He was seen by his son who is a physical therapist. He was recommended to have x-rays performed. He did note some improvement with 3 visits in therapy. No shortness of breath. No chest pain. No numbness or tingling. No neck pain. ARIS CANO PA-C [address], [place], [address], [place] [facility] 12/04/2022 12:31:18
--- OUTSIDE RECORDS SUMMARY | 2024-08-30 16:51 | XMS_ITS ---
Author Name [facility] Organization Unknown History of Medication Use Medication Directions Dispensed Refills Start Date End Date Stat us rosuvastatin 20 mg tablet 12/05/19 23 completed Eliquis 5 mg tablet acti ve trazodone 50 mg tablet TAKE 1 TABLET BY MOUTH EVERYDAY AT BEDTIME active lisinopril 40 mg tablet active atenolol 25 mg tablet ac tive Paxlovid 150 mg-100 mg tablets in a dose pack (Renal Dose) TAKE 2 TABLETS BY MOUTH TWICE A DAY FOR 5 DAYS 12/05/19 23 completed omeprazole 20 mg capsule,delayed release a ctive hydrochlorothiazide 25 mg tablet active Problems Problem Status Onset Date Problem Type Date of Resoluti on Source Pain of right shoulder joint active 2022-12-04 ProblemAct ENS_AONECT Impingement syndrome of right shoulder region active 2022-12-04 ProblemAct ENS_AO NECT Encounters Encounter Type Encounter Reason Primary Diagnosis Location Date Ambulatory [facility] [place] 12/04/2022 [facility] [place] 12/04/2022 [facility] [place] 12/04/2022 [facility] [place] 12/04/2022
== END 2024-08-30 16:14 | disposition home or self-care (01) ==
PROVIDERS: PCP Internal Medicine; Visit Provider Internal Medicine
DX: L71.9 Rosacea, unspecified (principal); I48.91 Unspecified atrial fibrillation

== ENCOUNTER → 2024-08-30 14:38 | Outpatient (BNVA) | payer MEDICARE, OTHER, SELFPAY | PROVIDERS: PCP Internal Medicine; Visit Provider Internal Medicine | DX: L71.9 Rosacea, unspecified (principal); I48.91 Unspecified atrial fibrillation | CPT/HCPCS: 96127; 99202 ==

== ENCOUNTER 2024-09-08 06:52 | Outpatient (REF) | payer MEDICARE, OTHER, SELFPAY ==
[2024-09-08 07:42] LABS: Appearance Urine Clear; Color Urine Yellow; Glucose Urine UA Negative (Negative); Leukocyte Esterase Urine Negative (Negative); Nitrite Urine Negative (Negative); PH 6.5 (5.0-9.0); UMIC TRIGGER UA YES; Urine Blood Moderate (2+) (Negative); Urine Ketones Negative (Negative); Urine Protein Trace mg/dL (Neg-Trace)
[2024-09-08 07:43] LABS: Hemoglobin 17.4 g/dl (14.0-18.0); Mean Corpuscular HGB Conc 33.5 g/dl (31.0-36.0); Mean Corpuscular Hemoglobin 29.4 pg (27.0-33.0); Mean Corpuscular Volume 87.8 fL (80.0-98.0); Mean Platelet Volume 10.1 fL (9.4-12.4); Platelet Count 173 X10*3/uL (160-400); Red Blood Count 5.92 X10*6/uL (4.60-5.80); Red Cell Distribution Width 13.7 % (11.0-16.0); White Blood Count 7.5 X10*3/uL (4.8-10.8)
[2024-09-08 07:44] LABS: Bacteria Urine None Seen (None Seen); Hyaline Casts Urine 0-2 /LPF (0-2); RBC Urine >20 /HPF (0-2); Squamous Epithelial Cell Urine 0-2 /HPF (0-2); WBC Urine 0-5 /HPF (0-5)
[2024-09-08 08:13] LABS: Alanine Aminotransferase 18 U/L (0-40); Albumin Level 3.9 g/dL (3.5-5.0); Anion Gap 10 (12-20); Aspartate Amino Transferase 24 U/L (5-37); Bilirubin Direct 0.4 mg/dL (0.0-0.5); Bilirubin Total 0.7 mg/dL (0.0-1.0); Blood Urea Nitrogen 22 mg/dL (9-16); Calcium 9.3 mg/dL (8.4-10.2); Carbon Dioxide 29 mmol/L (22-29); Chloride 106 mmol/L (96-108); Cholesterol 124 mg/dL (<200); Estimated Glomerular Filt Rate > 60; Glucose Random 105 mg/dL (60-115); HDL Cholesterol 43 mg/dL (>40); LDL Cholesterol Calculated 65 mg/dL (<100); Potassium 4.2 mmol/L (3.3-5.1); Sodium 141 mmol/L (135-145); Total Protein 6.9 g/dL (6.5-8.0); Triglycerides 83 mg/dL (<150)
[2024-09-08 08:21] LABS: Alkaline Phosphatase 83 U/L (39-117)
[2024-09-08 08:34] LABS: Thyroid Stimulating Hormone 2.06 uIU/mL (0.32-4.0)
== END 2024-09-08 06:53 | disposition home or self-care (01) ==
LOC: HO.LAB 06:52
PROVIDERS: PCP Internal Medicine; Visit Provider Internal Medicine
DX: I48.91 Unspecified atrial fibrillation (principal); L71.9 Rosacea, unspecified; Z13.6 Encounter for screening for cardiovascular disorders
CPT/HCPCS: 36415; 80048; 80061; 80076; 81001; 84443; 85027

== ENCOUNTER 2025-03-01 08:54 | Outpatient (REF) | payer MEDICARE, OTHER, SELFPAY ==
--- NOTE | ~2025-03-01 | XR_ITS ---
EXAMINATION: XR LUMBOSACRAL SPINE CLINICAL INFORMATION: M54.31 - Sciatica, right side COMPARISON: None available. TECHNIQUE: Three views of the lumbosacral spine. FINDINGS: Mild levoconvex curvature. Mild anterolisthesis of L4 on L5. No evidence of acute fracture. Multilevel moderate-severe disc degenerative changes. More prominent findings of severe disc degeneration at L1-L2, L2-L3. Multilevel facet degeneration. SI joints are symmetric. Prominent vascular calcifications. Paraspinal soft tissues are unremarkable. XR/XR lumbar spine 2-3V IMPRESSION: Moderate-severe lumbar spondylosis. No radiographic evidence of acute fracture. Electronically signed by: Ry Srivastava MD 03/01/2025 04:38 PM EDT
== END 2025-03-01 08:55 | disposition home or self-care (01) ==
LOC: HO.XRAY 08:54
PROVIDERS: PCP Internal Medicine; Visit Provider Physician Assistant Medical
DX: M54.31 Sciatica, right side (principal)
CPT/HCPCS: 72100

== ENCOUNTER → 2025-03-01 09:44 | Outpatient (BNV) | payer MEDICARE, OTHER, SELFPAY | PROVIDERS: PCP Internal Medicine; Visit Provider Radiology Diagnostic Ultrasound | DX: M47.816 Spondylosis without myelopathy or radiculopathy, lumbar region (principal) | CPT/HCPCS: 72100 ==

== ENCOUNTER → 2025-03-18 14:04 | Outpatient (BNV) | payer MEDICARE, OTHER, SELFPAY | PROVIDERS: PCP Internal Medicine; Visit Provider Radiology Diagnostic Radiology | DX: M51.27 Other intervertebral disc displacement, lumbosacral region (principal); M47.815 Spondylosis without myelopathy or radiculopathy, thoracolumbar region; M41.85 Other forms of scoliosis, thoracolumbar region; M48.061 Spinal stenosis, lumbar region without neurogenic claudication | CPT/HCPCS: 72148 ==

== ENCOUNTER 2025-03-18 14:05 | Outpatient (REF) | payer MEDICARE, OTHER, SELFPAY ==
--- NOTE | ~2025-03-18 | MR_ITS ---
EXAMINATION: MR LUMBAR SPINE WITHOUT CONTRAST CLINICAL INFORMATION: M 54.31. Sciatica, right-sided. COMPARISON: Correlated to x-ray dated March 01, 2025. TECHNIQUE: MRI of the lumbar spine was obtained using routine sequences without contrast. FINDINGS: Last rib-bearing vertebra labeled T12. Mild bone marrow STIR signal within the vertebral bodies of T11, T12 and the endplates of L3-4. Multilevel marginal osteophyte formation and syndesmophyte formation, decreased intervertebral disc height and signal with subchondral cyst formation and endplate irregularities from T10-11 to L4-5. Levoconvex rotoscoliosis apex at L2-3. Dextroconvex curvature T12-L1. Grade 1 anterolisthesis L4-5. Grade 1 retrolisthesis T11-12, T12-L1, L1 to and L2-3 levels. Conus medullaris ends at intervertebral disc T12-L1 with normal signal. There is a 1 mm central spinal cord T2 signal and T11-T12 likely congenital prominent central spinal cord canal. Modic type I endplate changes, L3-4. Modic type II endplate changes, T11-12, T12-L1. Multilevel Schmorl nodes in the axial skeleton. T11-12: No disc herniation. No neuroforamina stenosis. T12-L1: Facet joint hypertrophy as well as ligamentum flavum. Broad-based disc bulging. Decreased AP diameter of the thecal sac and left neuroforamina narrowing. L1-2: Broad-based disc bulging. Facet joint and ligamentum flavum hypertrophy. Reduced AP diameter of the thecal sac. Bilateral neuroforamina stenosis. L2-3: Prominent epidural fat in a circumferential fashion. Bilateral facet joint and ligamentum flavum hypertrophy. Broad-based disc bulging. Reduced AP diameter of the thecal sac and bilateral neuroforamina stenosis encroaching the exiting nerve roots. L3-4: Broad-based disc bulging. Prominent epidural fat. Facet joint ligamentum flavum hypertrophy. Reduced AP diameter thecal sac. Bilateral neuroforamina stenosis likely encroaching the exiting nerve roots. L4-5: Broad-based disc bulging. Grade 1 anterolisthesis. Facet joint and ligamentum flavum hypertrophy. Mild prominent epidural fat. Reduced AP diameter of the thecal sac. Bilateral neuroforamina stenosis likely encroaching the exiting nerve roots. L5-S1: Right subarticular and foraminal broad-based herniated disc compressing right S1 nerve root and encroaching the right L5 nerve root. Prominent epidural fat. Facet joint hypertrophy. Central spinal canal stenosis. Bilateral neuroforamina narrowing. Asymmetric volume loss right psoas muscle likely denervation. Fatty atrophy of the lower lumbar muscles from L1-2 to sacrum likely fatty denervation. No prevertebral compartment hematoma, mass or fluid collection. Multifocal parapelvic and exophytic cystic lesions in the kidneys. MR/MR lumbar spine wo con IMPRESSION: Right subarticular and foraminal broad-based disc herniation L5-S1 compressing right S1 nerve roots and encroaching right L5 nerve roots. Multilevel thoracolumbar spondylosis and scoliosis with associated multilevel grade 1 retrolisthesis T12-L1 to L3-4 and grade 1 anterolisthesis L4-5 resulting in central spinal canal and and bilateral neuroforamina stenosis more conspicuous at L3-4 and L4-5 levels. Electronically signed by: Edwar Elder MD 03/19/2025 07:32 AM EDT
--- OUTSIDE RECORDS SUMMARY | 2025-03-18 14:15 | XMS_ITS ---
Author Name [facility] Organization Unknown History of Medication Use Medication Directions Dispensed Refills Start Date End Date Stat us Paxlovid 150 mg-100 mg tablets in a dose pack (Renal Dose) TAKE 2 TABLETS BY MOUTH TWICE A DAY FOR 5 DAYS 12/05/19 23 completed rosuvastatin 20 mg tablet 12/05/19 23 completed amlodipine 5 mg tablet a ctive atenolol 25 mg tablet ac tive Eliquis 5 mg tablet acti ve hydrochlorothiazide 25 mg tablet active lisinopril 40 mg tablet active omeprazole 20 mg capsule,delayed release a ctive simvastatin 40 mg tablet active trazodone 50 mg tablet TAKE 1 TABLET BY MOUTH EVERYDAY AT BEDTIME active Problems Problem Status Onset Date Problem Type Date of Resoluti on Source Pain of right shoulder joint active 2022-12-04 ProblemAct ENS_AONECT Impingement syndrome of right shoulder region active 2022-12-04 ProblemAct ENS_AO NECT Encounters Encounter Type Encounter Reason Primary Diagnosis Location Date Ambulatory [facility] [place] 12/04/2022 [facility] [place] 12/04/2022 [facility] [place] 12/04/2022 Amb[facility] [place] 12/04/2022
--- OUTSIDE RECORDS SUMMARY | 2025-03-18 14:15 | XMS_ITS | Patient Health Record ---
Author Organization [facility] Address [address] [place] [phone] Care Team Providers Care Superintendent Local Name Role Phone Deyanira (RETIRED) Zack CAMILO Primary Care Provide r Lalito Washington Jr Unavailable Reason For Referral No Information Medications Medication SIG (Take, Route, Frequency, Duration) Notes Start Date End Date Status Aspir-81 81 MG 1 tablet Orally Once a day Active Omeprazole 20 MG 1 capsule Orally Onc e a day Active Lisinopril 40 MG 1 tablet Orally Once a day Active Atenolol 50 MG 1 tablet Orally Once a day Active Fish Oil Active Colyte with Flavor Packs 240 GM As direc ochoa Orally Over the specified time.; Duration: 1 day(s) 05/29/2020 Active traZODone HCl 50 MG Orally Active Multivitamin Active hydroCHLOROthiazide 25 MG 1 tablet Orall y Once a day Active amLODIPine Besylate 5 MG 1 tablet Orally Once a day Active Simvastatin 40 MG 1 tablet in the evening Orally Once a day Active Immunizations Vaccine Route Administration Date Status Comme nts Flu vaccine no Preserv 3 and > Unknown 03/06/2015 Admin istered Influenza Unknown 01/03/2020 Administered Problems Problem Type SNOMED Code ICD Code Onset Dates Problem Status W/U Status Risk Notes Problem Colon cancer screening (599108938) Colon cancer screening (Z12.11) Active confirmed Problem Already on aspirin (951932698) shelter current use of aspirin (Z79.82) Active confirmed Problem Computed tomography result abnormal (494095246) Abnormal CT scan, colon (R93.3) Active confirmed Problem Gastroesophageal reflux disease (055147752) Gastroesophageal reflux disease, unspecified whether esophagitis present (K21.9) Active confirmed Plan Of Treatment Future Test Test Name Order Date COLONOSCOPY 03/20/2015 UPPER GI ENDOSCOPY 05/29/2020 COLONOSCOPY 05/29/2020 Insurance Providers Payer Name Payer Address Payer Phone Subscriber Number Group Number Insured Name Patient Relationship to Insured Coverage Start Date Coverage End Date MEDICARE OF [place] [address] [place] [address] [id number] QUANGKYLER Self - patient is the insured [facility] [employer] [address] [place] [address] [id number] KYLER DEL RIO Self - patient is the insured Medical (General) History Medical History History ICD Code colonoscopy 06/05/15, diverti culosis, five-year followup because of family history of colon cancer diverticulosis hypertension elevated cholesterol coronary artery disease with history of DC and stent placement Surgical History Surgery Date(Month/Year) angioplasty for coronary art amadou disease, stent placement and LAD and RCA, 2012 pilonidal cyst repair L4-5 herniated disc repair vasectomy couple of stents placed - RCA and LAD
--- OUTSIDE RECORDS SUMMARY | 2025-03-18 14:15 | XMS_ITS | Data Portability ---
Author Organization [place] [facility] L[facility] Enriquez AONE [place] Address [address] [place] [address] Care Team Providers Care Visual Educator Name Role Phone MARY BOLAND Primary Care [...] reserved for patients who fail conservative treatment. Not available 12/04/2022 12:30:28 Plan of Treatment Reminders Order Date Submit Date Provider Last Modified By Organization Details Last Modified Time Details Appointments None record ed. Lab None record ed. Referral None record ed. Procedures None record ed. Surgeries None record ed. Imaging XR, should er, 2 or more view 023 12/05/19 23 [email or web address] 1 [facility], [address], [place], [address], 10:11:56 Medication Orders None record ed. Patient TargetsNo targets recorded. Patient Instructions Encounter Date Encounter Id Patient Instructions Last Modified By Organization Details Last Modified Time 12/04/2022 [id number] Views of the Right shoulder were obtained in the [place] office including AP, Grashey and outlet views. Normal bone mineralization. Some decrease in the subacromial space. No evidence of acute injury or fracture. Interpretation by: Aris Cano PA-C [email or web address] Not available 12/04/2022 12:30:58 Reason for Referral None Reported. Problems Name Problem SNOMED Code Status Onset Date Resolution Date Notes Provider Name and Address Organization Details Recorded Time Impingement syndrome of right shoulder region 2186210981430 02 Active 2022 ARIS CANO PA-C [address], [facility] [place], [address], [place] [facility], [facility] 3 12:29:45 Pain of right shoulder joint 3988656563999 9100 Active 2022 ARIS CANO PA-C [address], [place], [address], [place] [facility], [facility] 3 12:29:48 Problem Notes None recorded. Procedures Surgical History Date Name Laterality Status Provider Name and Address Organization Details Recorded Time Ankle/Foot Surgery completed Humza Ho [facility] [place], [facility] 12/04/2022 11:00:29 Imaging Results None recorded. [...] mg-100 mg tablets in a dose pack (Moderate Renal Dose) TAKE 2 TABLETS BY MOUTH TWICE A DAY FOR 5 DAYS 12/04 completed Not Available Not Available Not Available Vitals Date Recorded Body weight Body mass index (BMI) Body height Provider Name and Address Organization Details Last Updated DateTime 12/04/2022 62054.32 g 34.5 kg/m2 170.18 cm Humza [place] [facility], 12/04/2022 10:59:37 Social History None recorded. Functional Status Question Answer Note LastModified by Organizat ion Details LastModified Time What is your level of alcohol consumption? Occasional [email or web address] Information not available 12/04/2022 Mental Status None recorded. Family History Nothing Reported. Medical History Condition Response Heart Attack ([place]) Y Hypertension Y Past Encounters Encounter ID Performer Location Encounter Start Date Encounter Closed Date Diagnosis/Indication Diagnosis SNOMED-CT Code Diagnosis ICD10 Code Diagnosis IMO Codes Diagnosis Note [id number] ARIS CANO PA-C [facility] [address] [place] [phone] 12/04/2022 10:26:59 12/04/2022 11:36:36 Pain of right shoulder joint 2896494602 4073223 M25.511 Impingemen t syndrome of right shoulder region 2981622074 30223 M75.41 Health Concerns Section Related Observation LastModified by Organization Detai ls LastModified Time None Recorded Concern Status LastModified by Organization Details LastModified Time None Recorded Advance Directives Directive None Recorded Payers Insurance Date Sequence Insurance Name Policy Number Policy Quiñones Covered Member ID Quiñones Member ID Guarantor Name 12/04/2022 1 MEDICARE B-CT: NGS John Trevizo [id number] John Trevizo 12/04/2022 2 UNICARE [id number] John Trevizo [id number] John Trevizo Notes Date Note Type Note Provider Name [...] ARIS CANO PA-C [address], [place], [address], [place] [facility] 12/04/2022 12:31:18
== END 2025-03-18 14:06 | disposition home or self-care (01) ==
LOC: HO.MRI 14:05
PROVIDERS: PCP Internal Medicine; Visit Provider Physician Assistant Medical
DX: M54.31 Sciatica, right side (principal)
CPT/HCPCS: 72148

== ENCOUNTER 2025-03-28 13:48 | Outpatient (AMB) | payer MEDICARE, OTHER, SELFPAY ==
--- NOTE | 2025-03-28 13:24 | HO.SPINEOV ---
Vital Signs 03/28/25 13:55 Height 5 ft 8 in Weight 217 lb BMI 33.0 Intake Visit Reasons: LBP Intake Note: Mr. Trevizo is here today c/o low back pain. Obstetric Assistant Required: No Allergies No Known Allergies (No Known Allergies*) Allergy (Verified 03/28/25 13:56) Physical Exam Vital Signs: BMI result Body Mass Index 33.0 Assessment & Plan Assessment & Plan (1) Lumbar disc herniation: Code(s): M51.26 - Other intervertebral disc displacement, lumbar region Category: Medical Plan Dear DIAMANTE Alvarado, Thank you for referring John to our office today. He is a pleasant 79-year-old male who comes in today for evaluation of pain shooting down his right lower extremity. He reports that this has been ongoing for the past 2 months since denies any known inciting incident for the pain. When describing the pain he states it starts in his posterior buttocks and shoots down the right posterior thigh, terminating near the right gastrocnemius. He denies any numbness/burning/tingling associated with the pain. He states the pain has slowly progressed to the point where it is now very severe. He rates his daily pain as a 10/10. He states that his pain is waking him up at night and causing him to reduce his activity throughout the day. Most recently about 2 weeks ago he had to start utilizing a cane when ambulating to help mitigate the pain he feels when walking. Ambulation is when he states his pain is primarily the worst. His pain improves with sitting and/or lying down. He reports that he has attempted swkl-[id number] medications such as NSAIDs and Tylenol without significant relief of his symptoms. He is currently taking prescribed aspirin and gabapentin. He states that he has a son who has his doctor degree in physical therapy and he has been doing at-home stretching/exercises with him for the past 2 months. He states that he only gets very modest relief from PT exercises, then his pain always returns. He denies any saddle anesthesia or bowel/bladder incontinence. PMH: Rosacea, atrial fibrillation on Eliquis, CAD (coronary artery disease), Diverticulosis, Dizziness, Elevated cholesterol, HTN (hypertension), Hx Myocardial infarction. Social hx: The patient is a former smoker, no current nicotine use. No other substance use reported. Medications: Amlodipine, Eliquis, aspirin, atenolol, dronedarone, gabapentin, HCTZ, lisinopril, multivitamin, omeprazole, prednisone, simvastatin. Allergies: NKDA. Physical exam: The patient has full 5/5 strength in his upper and lower extremities. He ambulates slowly with a slightly antalgic gait favoring the left-hand side. He utilizes a cane to help with ambulation. He is able to rise from a seated position without much difficulty, and gets up onto the examination table without issue. He has no significant sensational deficits to light touch on examination. His reflexes are 2+ intact. (+) Right sided straight leg raise. (-) Left sided straight leg raise. (-) Gimenez's, (-) clonus. Imaging review: MRI of the lumbar spine completed here at [facility] 03/18/25 shows diffuse spondylosis of the lumbar spine with fairly significant degenerative disc disease seen from L1-4. There is nearly complete loss of disc height at these levels. There is moderate-severe bilateral foraminal stenosis at L1-2, mild-moderate central canal stenosis at L2-3, mild-moderate bilateral foraminal stenosis at L3-4, severe left-sided and moderate right-sided lateral recess stenosis at L4-5, and most notably there is a right-sided paracentral disc herniation at L5-S1 causing severe compression of the right side at this level. In addition to this the patient also has a mild levoscoliosis with the apex at L3. CT of abd/pelvis from 2020 does not appear to show any evidence of autofusion throughout lumbar spine. Impression: John is a pleasant 79-year-old male who comes in today for evaluation of shooting pain down his right lower extremity that began acutely about 2 months ago with no known inciting incident. I believe that his pain is most likely coming from the disc herniation seen at L5-S1 causing severe right-sided nerve compression. His pain matches the dermatomal distribution of this compression. I evaluated the patient alongside my attending neurosurgeon Dr. Church who is in clinic with me today. He agrees with this assessment, and offered the patient a right-sided L5-S1 microdiskectomy to treat his severe right-sided leg pain. The patient is agreeable to this, and wishes to proceed. We extensively discussed the procedure utilizing our spine models in office, and all questions related to the procedure were answered. He will need to stop his Aspirin 1 week before surgery, and stop his Eliquis 3 days before surgery. The patient was given risk and benefits of surgery including but not limited to infection, hematoma, nerve injury, durotomy, weakness, bowel/bladder injury, persistent pain. We also discussed the option to continue with conservative treatment and patient wishes to proceed with surgery. They are aware they should stop NSAIDs 7 days prior to surgery. All questions were answered to the best of our ability. If there is anything about this patients medical history that we have overlooked or concerns you have about us proceeding with surgery we would appreciate any input you can offer Thank you for allowing us to care for your patient. The total time spent with this visit with this patient was 45 minutes reviewing history, physical exam, MRI imaging review, and implementation of treatment plan or further diagnostic testing Ezequiel Church MD,PhD [facility] Coding Level of Care Code New Pt Level 4 (13885) Diagnoses Lumbar disc herniation M51.26
[2025-03-28 13:55] VITALS: BMI 33.0
--- OUTSIDE RECORDS SUMMARY | 2025-03-28 16:46 | XMS_ITS | Data Portability ---
Author Organization [facility] Lena Enriquez AONE [place] Address [address] [place] [address] Care Team Providers Care Charter Driver Name Role Phone MARY BOLAND Primary Care [...] reserved for patients who fail conservative treatment. [email or web address] Not available 12/04/2022 12:30:28 Plan of Treatment Reminders Order Date Submit Date Provider Last Modified By Organization Details Last Modified Time Details Appointments None record ed. Lab None record ed. Referral None record ed. Procedures None record ed. Surgeries None record ed. Imaging XR, should er, 2 or more view 023 12/05/19 23 [email or web address] 1 [facility], [address], [address], [place], [address], 10:11:56 Medication Orders None record ed. Patient TargetsNo targets recorded. Patient Instructions Encounter Date Encounter Id Patient Instructions Last Modified By Organization Details Last Modified Time 12/04/2022 [id number] Views of the Right shoulder were obtained in the [place] office including AP, Grashey and outlet views. Normal bone mineralization. Some decrease in the subacromial space. No evidence of acute injury or fracture. Interpretation by: Aris Cano PA-C [email or web address] Not available 12/04/2022 12:30:58 Reason for Referral None Reported. Problems Name Problem SNOMED Code Status Onset Date Resolution Date Notes Provider Name and Address Organization Details Recorded Time Impingement syndrome of right shoulder region 0231607190209 02 Active 2022 ARIS CANO PA-C [address], [place], [address], [facility] P 3 12:29:45 Pain of right shoulder joint 4368946643704 9100 Active 2022 ARIS CANO PA-C [address], [place], [address], [facility], [facility] 3 12:29:48 Problem Notes None recorded. Procedures Surgical History Date Name Laterality Status Provider Name and Address Organization Details Recorded Time Ankle/Foot Surgery completed Humza Ho [facility] P 12/04/2022 11:00:29 Imaging Results None recorded. [...] Address Organization Details Last Updated DateTime 12/04/2022 16679.32 g 34.5 kg/m2 170.18 cm Humza [place] - [facility], 12/04/2022 10:59:37 Social History None recorded. Functional Status Question Answer Note LastModified by Organizat ion Details LastModified Time What is your level of alcohol consumption? Occasional [email or web address] Information not available 12/04/2022 Mental Status None recorded. Family History Nothing Reported. Medical History Condition Response Heart Attack ([place]) Y Hypertension Y Past Encounters Encounter ID Performer Location Encounter Start Date Encounter Closed Date Diagnosis/Indication Diagnosis SNOMED-CT Code Diagnosis ICD10 Code Diagnosis IMO Codes Diagnosis Note [id number] ARIS CANO PA-C [facility] [address] [place] [phone] 12/04/2022 10:26:59 12/04/2022 11:36:36 Pain of right shoulder joint 9895984662 9760296 M25.511 Impingemen t syndrome of right shoulder region 5575160812 58747 M75.41 Health Concerns Section Related Observation LastModified by Organization Detai ls LastModified Time None Recorded Concern Status LastModified by Organization Details LastModified Time None Recorded Advance Directives Directive None Recorded Payers Insurance Date Sequence Insurance Name Policy Number Policy Quiñones Covered Member ID Quiñones Member ID Guarantor Name 12/04/2022 1 MEDICARE B-CT: NGS John Trevizo [id number] John Trevizo 12/04/2022 2 UNICARE [id number] John Trevizo [id number] John Trevizo Notes Date Note Type Note [...] ARIS CANO PA-C [address], [place], [address], [place] [facility] 12/04/2022 12:31:18
--- OUTSIDE RECORDS SUMMARY | 2025-03-28 16:46 | XMS_ITS | Patient Health Record ---
Author Organization [facility] Address [address] [place] [address] Care Team Providers Care Media Professional Name Role Phone Deyanira (RETIRED) Zack CAMILO Primary Care Provide r Lalito Washington Jr Unavailable [phone] Reason For Referral No Information Medications Medication [...] Status Risk Notes Problem Colon cancer screening (282357370) Colon cancer screening (Z12.11) Active confirmed Problem Already on aspirin (741439478) intermediate current use of aspirin (Z79.82) Active confirmed Problem Computed tomography result abnormal (353789237) Abnormal CT scan, colon (R93.3) Active confirmed Problem Gastroesophageal reflux disease (371097621) Gastroesophageal reflux disease, unspecified whether esophagitis present (K21.9) Active confirmed Plan Of Treatment Future Test Test Name Order Date COLONOSCOPY 03/20/2015 UPPER GI ENDOSCOPY 05/29/2020 COLONOSCOPY 05/29/2020 Insurance Providers Payer Name Payer Address Payer Phone Subscriber Number Group Number Insured Name Patient Relationship to Insured Coverage Start Date Coverage End Date MED[place]ARE OF [place] [address] [place] [address] [id number] QUANGKYLER Self - patient is the insured [facility] INDEMNITY [address] [place] [address] [id number] KYLER DEL RIO Self - patient is the insured Medical (General) History Medical History History ICD Code colonoscopy 06/05/15, diverti culosis, five-year followup because of family history of colon cancer diverticulosis hypertension elevated cholesterol coronary artery disease with history of [place] and stent placement Surgical History Surgery Date(Month/Year) angioplasty for coronary art amadou disease, stent placement and LAD and RCA, 2012 pilonidal cyst repair L4-5 herniated disc repair vasectomy couple of stents placed - RCA and LAD
== END 2025-03-28 14:57 | disposition home or self-care (01) ==
LOC: HO.HNS 13:48
PROVIDERS: PCP Physician Assistant Medical; Referring Provider Physician Assistant Medical; Visit Provider Physician Assistant
DX: M51.26 Other intervertebral disc displacement, lumbar region (principal)
CPT/HCPCS: 99204

== ENCOUNTER → 2025-03-28 13:48 | Outpatient (BNVA) | payer MEDICARE, OTHER, SELFPAY | PROVIDERS: PCP Physician Assistant Medical; Referring Provider Physician Assistant Medical; Visit Provider Physician Assistant | DX: M51.26 Other intervertebral disc displacement, lumbar region (principal); M48.061 Spinal stenosis, lumbar region without neurogenic claudication; M51.16 Intervertebral disc disorders with radiculopathy, lumbar region | CPT/HCPCS: 99202 ==

== ENCOUNTER 2025-04-06 07:42 | Outpatient (AMB) | payer MEDICARE, OTHER, SELFPAY ==
--- OUTSIDE RECORDS SUMMARY | 2025-04-06 07:44 | XMS_ITS | Data Portability ---
Author Organization [facility] Lena Enriquez AONE [place] Address [address] [place] [address] Care Team Providers Care Billet Inspector Name Role Phone MARY BOLAND Primary [...] 023 12/05/19 23 [email or web address] 1 [facility], [address], [address], [place], [address], 10:11:56 Medication Orders None record ed. Patient TargetsNo targets recorded. Patient Instructions Encounter Date Encounter Id Patient Instructions Last Modified By Organization Details Last Modified Time 12/04/2022 [id number] Views of the Right shoulder were obtained in the [place] office including AP, Grashey and outlet views. Normal bone mineralization. Some decrease in the subacromial space. No evidence of acute injury or fracture. Interpretation by: Aris Cano PA-C [email or web address] Not available 12/04/2022 12:30:58 Reason for Referral None Reported. Problems Name Problem SNOMED Code Status Onset Date Resolution Date Notes Provider Name and Address Organization Details Recorded Time Impingement syndrome of right shoulder region 2318783939565 02 Active 2022 ARIS CANO PA-C [address], [place], [address], [facility], P 3 12:29:45 Pain of right shoulder joint 6220232969779 9100 Active 2022 ARIS CANO PA-C [address], [place], [address], [facility], P 3 12:29:48 Problem Notes None recorded. Procedures Surgical History Date Name Laterality Status Provider Name and Address Organization Details Recorded Time Ankle/Foot Surgery completed Humza Ho [facility] 12/04/2022 11:00:29 Imaging Results None recorded. [...] Address Organization Details Last Updated DateTime 12/04/2022 53845.32 g 34.5 kg/m2 170.18 cm Humza [place] - [facility], 12/04/2022 10:59:37 Social History None recorded. Functional Status Question Answer Note LastModified by Organizat ion Details LastModified Time What is your level of alcohol consumption? Occasional [email or web address] Information not available 12/04/2022 Mental Status None recorded. Family History Nothing Reported. Medical History Condition Response Heart Attack ([place]) Y Hypertension Y Past Encounters Encounter ID Performer Location Encounter Start Date Encounter Closed Date Diagnosis/Indication Diagnosis SNOMED-CT Code Diagnosis ICD10 Code Diagnosis IMO Codes Diagnosis Note [id number] ARIS CANO PA-C [facility] [address] [place] [phone] 12/04/2022 10:26:59 12/04/2022 11:36:36 Pain of right shoulder joint 1119359166 0765358 M25.511 Impingemen t syndrome of right shoulder region 9062868119 24629 M75.41 Health Concerns Section Related Observation LastModified by Organization Detai ls LastModified Time None Recorded Concern Status LastModified by Organization Details LastModified Time None Recorded Advance Directives Directive None Recorded Payers Insurance Date Sequence Insurance Name Policy Number Policy Quiñones Covered Member ID Quiñones Member ID Guarantor Name 12/04/2022 1 MEDICARE B-CT: NGS John Trevizo [id number] John Trevizo 12/04/2022 2 UNICARE [id number] John Trevizo [id number] John Trevizo Notes Date Note Type Note [...] ARIS CANO PA-C [address], [place], [address], [place] [facility] 12/04/2022 12:31:18
--- OUTSIDE RECORDS SUMMARY | 2025-04-06 07:45 | XMS_ITS | Patient Health Record ---
Author Organization [facility] Address [address] [place] [address] Care Team Providers Care Sub Acute Care Nurse Name Role Phone Deyanira (RETIRED) Zack CAMILO [...] Status Risk Notes Problem Colon cancer screening (019612359) Colon cancer screening (Z12.11) Active confirmed Problem Already on aspirin (420497116) terminal gauger current use of aspirin (Z79.82) Active confirmed Problem Computed tomography result abnormal (856386292) Abnormal CT scan, colon (R93.3) Active confirmed Problem Gastroesophageal reflux disease (041249608) Gastroesophageal reflux disease, unspecified whether esophagitis present (K21.9) Active confirmed Plan Of Treatment Future Test Test Name Order Date COLONOSCOPY 03/20/2015 UPPER GI ENDOSCOPY 05/29/2020 COLONOSCOPY 05/29/2020 Insurance Providers Payer Name Payer Address Payer Phone Subscriber Number Group Number Insured Name Patient Relationship to Insured Coverage Start Date Coverage End Date [place]ARE OF [place] [address] [place] [address] [id number] QUANGKYLER Self - patient is the insured [facility] INDEMNITY [address] [place] [address] [id number] KYLER DEL RIO Self - patient is the insured Medical (General) History Medical History History ICD Code colonoscopy 06/05/15, diverti culosis, five-year followup because of family history of colon cancer diverticulosis hypertension elevated cholesterol coronary artery disease with history of [place] and stent placement Surgical History Surgery Date(Month/Year) angioplasty for coronary art amadou disease, stent placement and LAD and RCA, 2012 pilonidal cyst repair L4-5 herniated disc repair vasectomy couple of stents placed - RCA and LAD
--- NOTE | 2025-04-06 07:49 | MHC.OFFVIS ---
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 The back pain began in January and is associated with severe disc herniation causing right-sided nerve compression, as confirmed by MRI. The patient reports that the pain is constant and exacerbated by movement, with a severity of 6 to 10 out of 10. The patient has a history of scoliosis and degenerative disc disease, which contribute to his current condition. He has previously undergone back surgery 30 years ago at the L4-L5 level he believes due to a piece of bone floating on the nerve, which was removed surgically. The patient also has a history of cardiac issues, including coronary artery disease with stenting and atrial fibrillation, which complicate his current treatment options. The patient has been engaging in physical therapy exercises, guided by his son, a physical therapist, which provide temporary relief. He has been taking ibuprofen for pain relief, despite being on Eliquis, which is contraindicated. Gabapentin has been prescribed but is not providing significant relief. Patient was also seen by [facility] who offered him a right-sided L5-S1 microdiskectomy to treat his severe right-sided leg pain and was booked for 05/10/25. 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 - Onset: Pain began in January. - Quality: Constant throbbing, tingling, dull, sore, aching, tiring, sickening, radiating pain, rated 6 to 10 out of 10 with movement. - Location: Back pain radiating to the right buttock and posterior right leg. - Exacerbating factors: Movement, standing, and walking. - Relieving factors: Sitting and leaning forward. - Affect: Pain impacts daily activities and mood, causing concern about surgery and recovery. - Analgesia: Currently using ibuprofen and gabapentin, with limited relief. - Adverse Effects: Potential bleeding risk from ibuprofen use with Eliquis. - Activities of Daily Living: Pain limits walking and standing, requiring frequent rest. - Aberrant Drug Related Behaviors: Taking ibuprofen despite contraindications with Eliquis. [facility] Medical History Dizziness Low back pain with right-sided sciatica Right sided sciatica Atrial fibrillation Rosacea Arthritis Diverticulosis [place] (hard of hearing) On beta leif at home Elevated cholesterol Myocardial infarction CAD (coronary artery disease) HTN (hypertension) Surgical History History of vasectomy History of excision of pilonidal cyst History of back surgery H/O colonoscopy (~07/02/20) History of heart artery stent History of PTCA Family History Mother No problems noted. Father No problems noted. Social History Housing: House Are you a primary child adolescent care to a significant other at home: No Do you presently have visiting nurse or other home services: No Patient Tobacco Use Status: Former Tobacco user e-Cigarette/Vaping Use: Former Use service: No Current occupational status: retired Cognitive needs: No Hearing needs: Yes (bilateral) Vision needs: Yes (reading glasses) Review of Systems Const Details: - Musculoskeletal: Reports constant back pain radiating to the right leg, exacerbated by movement. - Neurological: Denies worsening symptoms such as incontinence or inability to walk. - Cardiovascular: Reports history of coronary artery disease and atrial fibrillation. All systems reviewed & are unremarkable except as noted in HPI and below Physical Exam Vital Signs: Last Vital Signs Pulse 60 04/06/25 07:57 BP 165/80 H 04/06/25 07:57 Pulse Ox 97 04/06/25 07:57 Oxygen Delivery Method Room Air 04/06/25 07:57 BMI result Body Mass Index 32.8 General: Appears afebrile. Alert and oriented. Mood and affect appropriate. Follows and participates in conversation appropriately. Respiratory effort is unlabored. No cough. Able to transition from sit to stand unassisted. Ambulates with antalgic gait, mild limping, mildly hunched forward posture, uses cane. General: Yes no CVA tenderness Back/Spine/Pelvis Other: Limited lumbar ROM due to pain. Lumbar flexion and bending reproduces moderate to severe pain, extension reproduces mild to moderate pain. Demonstrates 5/5 left and 4/5 right strength of quadriceps bilaterally as well as flexion/dorsiflexion of bilateral feet against resistance. 2+ pedal pulses bilaterally. Straight leg rise with dorsiflexion positive on the right. Diminished patellar and achilles reflexes bilaterally. Facet loading test positive bilaterally. No groin pain with I/E hip rotations. Valsalva maneuver negative. Back: no CVA tenderness Cervical Spine: cervical ROM normal, cervical muscular tenderness and No Cervical spine tenderness Thoracic/Lumbar Spine: thoracic and lumbar spine normal to inspection, Thoracic/lumbar spine scar(s), Lasegue's sign positive on the right and localized, pain with thoraco-lumbar ROM, paraspinal muscle tenderness on the right greater than left, thoraco-lumbar ROM limited, Thoracic/lumbar scoliosis, No thoracic spinal tenderness and lumbar spinal tenderness (L4-S1) Pelvis: buttock tenderness on the right Sacroiliac joints: bilaterally tender to palpation (mild) Extrem General: Yes capillary refill normal, Yes no clubbing, cyanosis or edema and Yes no calf tenderness Results Reviewed Results Reviewed: MR LUMBAR SPINE WITHOUT CONTRAST 03/18/25 CLINICAL INFORMATION: M 54.31. Sciatica, right-sided. COMPARISON: Correlated to x-ray dated March 01, 2025. TECHNIQUE: MRI of the lumbar spine was obtained using routine sequences without contrast. FINDINGS: Last rib-bearing vertebra labeled T12. Mild bone marrow STIR signal within the vertebral bodies of T11, T12 and the endplates of L3-4. Multilevel marginal osteophyte formation and syndesmophyte formation, decreased intervertebral disc height and signal with subchondral cyst formation and endplate irregularities from T10-11 to L4-5. Levoconvex rotoscoliosis apex at L2-3. Dextroconvex curvature T12-L1. Grade 1 anterolisthesis L4-5. Grade 1 retrolisthesis T11-12, T12-L1, L1 to and L2-3 levels. Conus medullaris ends at intervertebral disc T12-L1 with normal signal. There is a 1 mm central spinal cord T2 signal and T11-T12 likely congenital prominent central spinal cord canal. Modic type I endplate changes, L3-4. Modic type II endplate changes, T11-12, T12-L1. Multilevel Schmorl nodes in the axial skeleton. T11-12: No disc herniation. No neuroforamina stenosis. T12-L1: Facet joint hypertrophy as well as ligamentum flavum. Broad-based disc bulging. Decreased AP diameter of the thecal sac and left neuroforamina narrowing. L1-2: Broad-based disc bulging. Facet joint and ligamentum flavum hypertrophy. Reduced AP diameter of the thecal sac. Bilateral neuroforamina stenosis. L2-3: Prominent epidural fat in a circumferential fashion. Bilateral facet joint and ligamentum flavum hypertrophy. Broad-based disc bulging. Reduced AP diameter of the thecal sac and bilateral neuroforamina stenosis encroaching the exiting nerve roots. L3-4: Broad-based disc bulging. Prominent epidural fat. Facet joint ligamentum flavum hypertrophy. Reduced AP diameter thecal sac. Bilateral neuroforamina stenosis likely encroaching the exiting nerve roots. L4-5: Broad-based disc bulging. Grade 1 anterolisthesis. Facet joint and ligamentum flavum hypertrophy. Mild prominent epidural fat. Reduced AP diameter of the thecal sac. Bilateral neuroforamina stenosis likely encroaching the exiting nerve roots. L5-S1: Right subarticular and foraminal broad-based herniated disc compressing right S1 nerve root and encroaching the right L5 nerve root. Prominent epidural fat. Facet joint hypertrophy. Central spinal canal stenosis. Bilateral neuroforamina narrowing. Asymmetric volume loss right psoas muscle likely denervation. Fatty atrophy of the lower lumbar muscles from L1-2 to sacrum likely fatty denervation. No prevertebral compartment hematoma, mass or fluid collection. Multifocal parapelvic and exophytic cystic lesions in the kidneys. MR/MR lumbar spine wo con IMPRESSION: Right subarticular and foraminal broad-based disc herniation L5-S1 compressing right S1 nerve roots and encroaching right L5 nerve roots. Multilevel thoracolumbar spondylosis and scoliosis with associated multilevel grade 1 retrolisthesis T12-L1 to L3-4 and grade 1 anterolisthesis L4-5 resulting in central spinal canal and and bilateral neuroforamina stenosis more conspicuous at L3-4 and L4-5 levels. Assessment & Plan Assessment & Plan (1) Right sided sciatica: Code(s): M54.31 - Sciatica, right side Category: Medical (2) Low back pain with right-sided sciatica: Code(s): M54.41 - Lumbago with sciatica, right side Category: Medical (3) Lumbar disc herniation: Code(s): M51.26 - Other intervertebral disc displacement, lumbar region Category: Medical (4) Lumbar degenerative disc disease: Code(s): M51.36 - Other intervertebral disc degeneration, lumbar region Category: Medical (5) Lumbosacral spondylosis: Code(s): M47.817 - Spondylosis without myelopathy or radiculopathy, lumbosacral region Category: Medical Plan The plan involves considering surgical intervention for the severe disc herniation as planned per [facility], as it is causing significant nerve compression and pain radiating to the right leg. The patient is scheduled for surgery on May 10, but is exploring non-surgical options such as cortisone injections, which require clearance from the back surgeon due to the risk of further nerve compression. The patient is advised to avoid ibuprofen due to its interaction with Eliquis and to consider alternative pain management strategies. Physical therapy will continue to be part of the management plan, with exercises tailored to provide temporary relief. All questions and concerns have been answered and patient agreed with the treatment plan. Follow up as needed. Patient was informed and verbally consented to the use of an ambient scribe for clinic note documentation during this visit. Coding Level of Care Code New Pt Level 4 (99560) Diagnoses Right sided sciatica M54.31 Low back pain with right-sided sciatica M54.41 Lumbar disc herniation M51.26 Lumbar degenerative disc disease M51.36 Lumbosacral spondylosis M47.817
[2025-04-06 07:57] VITALS: BP 165/80; PULSE 60; O2SAT 97; BMI 32.8
== END 2025-04-06 08:42 | disposition home or self-care (01) ==
LOC: HO.PMC 07:42
PROVIDERS: PCP Physician Assistant Medical; Visit Provider Nurse Practitioner Family
DX: M54.31 Sciatica, right side (principal); M54.41 Lumbago with sciatica, right side; M51.26 Other intervertebral disc displacement, lumbar region; M51.369 Other intervertebral disc degeneration, lumbar region without mention of lumbar back pain or lower extremity pain; M47.817 Spondylosis without myelopathy or radiculopathy, lumbosacral region
CPT/HCPCS: 99204

== ENCOUNTER → 2025-04-06 07:42 | Outpatient (BNVA) | payer MEDICARE, OTHER, SELFPAY | PROVIDERS: PCP Physician Assistant Medical; Visit Provider Nurse Practitioner Family | DX: M54.41 Lumbago with sciatica, right side (principal); M51.26 Other intervertebral disc displacement, lumbar region; M47.817 Spondylosis without myelopathy or radiculopathy, lumbosacral region; Z87.891 Personal history of nicotine dependence; I10 Essential (primary) hypertension | CPT/HCPCS: 99202 ==

== ENCOUNTER 2025-04-26 12:38 | Outpatient (REF) | payer MEDICARE, OTHER, SELFPAY ==
[2025-04-26 14:29] LABS: Hematocrit 50.5 % (42.0-52.0); Hemoglobin 16.9 g/dl (14.0-18.0); Mean Corpuscular HGB Conc 33.5 g/dl (31.0-36.0); Mean Corpuscular Hemoglobin 30.1 pg (27.0-33.0); Mean Corpuscular Volume 89.9 fL (80.0-98.0); NRBC Abs Auto 0.000 X10*3/uL (0.0-0.012); NRBC Pct Auto 0.0 /100WBC (0.0-0.2); Platelet Count 193 X10*3/uL (160-400); Red Blood Count 5.62 X10*6/uL (4.60-5.80); White Blood Count 8.2 X10*3/uL (4.8-10.8)
[2025-04-26 15:09] LABS: Alanine Aminotransferase 29 U/L (0-40); Albumin Level 4.4 g/dL (3.5-5.0); Alkaline Phosphatase 72 U/L (39-117); Anion Gap 11 (12-20); Aspartate Amino Transferase 29 U/L (5-37); Blood Urea Nitrogen 26 mg/dL (9-16); Calcium 9.4 mg/dL (8.4-10.2); Carbon Dioxide 28 mmol/L (22-29); Chloride 108 mmol/L (96-108); Estimated Glomerular Filt Rate 58; Potassium 4.4 mmol/L (3.3-5.1); Sodium 143 mmol/L (135-145); Total Protein 7.0 g/dL (6.5-8.0)
== END 2025-04-26 12:39 | disposition home or self-care (01) ==
LOC: HO.LAB 12:38
PROVIDERS: PCP Physician Assistant Medical; Visit Provider Physician Assistant Medical
DX: I10 Essential (primary) hypertension (principal); I48.91 Unspecified atrial fibrillation; R42 Dizziness and giddiness
CPT/HCPCS: 36415; 80053; 84443; 85027

== ENCOUNTER → 2025-04-26 13:59 | Outpatient (BNV) | payer MEDICARE, OTHER, SELFPAY | PROVIDERS: PCP Internal Medicine; Visit Provider Internal Medicine | DX: R00.1 Bradycardia, unspecified (principal); I25.2 Old myocardial infarction | CPT/HCPCS: 93010 ==

== ENCOUNTER 2025-05-10 06:39 | Day surgery (SDC) | payer MEDICARE, OTHER, SELFPAY ==
--- OUTSIDE RECORDS SUMMARY | 2025-04-12 01:09 | XMS_ITS | Patient Health Record ---
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 Name Role Phone Deyanira (RETIRED) Zack CAMILO Primary Care Provide r Unavailable Lalito Chung Jr Unavailable Reason For Referral No Information Medications Medication SIG (Take, Route, Frequency, Duration) Notes Start Date End Date Status Aspir-81 81 MG Tablet Delaye d Release 1 tablet Orally Once a day Active Omeprazole 20 MG Capsule Delayed Release 1 capsule Orally Once a day Active Lisinopril 40 MG Tablet 1 tablet Orally Once a day Active Atenolol 50 MG Tablet 1 tablet Orally On ce a day Active Fish Oil Active Colyte with Flavor Packs 240 GM Solution Reconstituted As directed Orally Over the specified time.; Duration: 1 day(s) 05/29/2020 Active traZODone HCl 50 MG Tablet Orally Active Multivitamin Active hydroCHLOROthiazide 25 MG Tablet 1 tablet Orally Once a day Active amLODIPine Besylate 5 MG Tablet 1 tablet Orally Once a day Active Simvastatin 40 MG Tablet 1 tablet in the evening Orally Once a day Active Immunizations Vaccine Route Administration Date Status Comme nts Flu vaccine no Preserv 3 and > Unknown 03/06/2015 Admin istered Influenza Unknown 01/03/2020 Administered Social History Social History Additional Details Category Social Info Options Details Miscellaneous: Marital status: Occupation: retired Problems Problem Type SNOMED Code ICD Code Onset Dates Problem Status W/U Status Risk Notes Problem Colon cancer screening (062190088) Colon cancer screening (Z12.11) Active confirmed Problem Already on aspirin (430474612) 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 (Z79.82) Active confirmed Problem Computed tomography result abnormal (267855861) Abnormal CT scan, colon (R93.3) Active confirmed Problem Gastroesophageal reflux disease (227616874) Gastroesophageal reflux disease, unspecified whether esophagitis present (K21.9) Active confirmed Plan Of Treatment Future Test Test Name Order Date COLONOSCOPY 03/20/2015 UPPER GI ENDOSCOPY 05/29/2020 COLONOSCOPY 05/29/2020 Insurance Providers Payer Name Payer Address Payer Phone Subscriber Number Group Number Insured Name Patient Relationship to Insured Coverage Start Date Coverage End Date MEDICARE OF [place] [address] [place] [address] [id number] KYLER DEL RIO Self - patient is the insured [facility] [employer] [address] [place] [address] [id number] KYLER DEL RIO Self - patient is the insured Medical (General) History Medical History History ICD Code colonoscopy 06/05/15, diverti culosis, five-year followup because of family history of colon cancer diverticulosis hypertension elevated cholesterol coronary artery disease with history of OH and stent placement Surgical History Surgery Date(Month/Year) angioplasty for coronary art amadou disease, stent placement and LAD and RCA, 2012 pilonidal cyst repair L4-5 herniated disc repair vasectomy couple of stents placed - RCA and LAD
--- OUTSIDE RECORDS SUMMARY | 2025-04-12 01:09 | XMS_ITS | Data Portability ---
Author Organization [facility] Lena Enriquez [facility] [place] Address [address] [place] [address] Care Team Providers Care Primary Education Professor Name Role Phone MARY BOLAND Primary Care [...] reserved for patients who fail conservative treatment. [email or web address] Not available 12/04/2022 12:30:28 Plan of Treatment Reminders Order Date Submit Date Provider Last Modified By Organization Details Last Modified Time Details Appointments None record ed. Lab None record ed. Referral None record ed. Procedures None record ed. Surgeries None record ed. Imaging XR, should er, 2 or more view 023 12/05/19 23 [email or web address] 1 [facility], [address], [address], [place], [address], 10:11:56 Medication Orders None record ed. Patient TargetsNo targets recorded. Patient Instructions Encounter Date Encounter Id Patient Instructions Last Modified By Organization Details Last Modified Time 12/04/2022 [id number] Views of the Right shoulder were obtained in the [place] office including AP, Grashey and outlet views. Normal bone mineralization. Some decrease in the subacromial space. No evidence of acute injury or fracture. Interpretation by: Aris Cano PA-C [email or web address] Not available 12/04/2022 12:30:58 Reason for Referral None Reported. Problems Name Problem SNOMED Code Status Onset Date Resolution Date Notes Provider Name and Address Organization Details Recorded Time Impingement syndrome of right shoulder region 0783471487465 02 Active 2022 ARIS CANO PA-C [address], [place], [address], [place] [facility] P 3 12:29:45 Pain of right shoulder joint 0897540907595 9100 Active 2022 ARIS CANO PA-C [address], [place], [address], [place] [facility], P 3 12:29:48 Problem Notes None recorded. Procedures Surgical History Date Name Laterality Status Provider Name and Address Organization Details Recorded Time Ankle/Foot Surgery completed Humza [facility] 12/04/2022 11:00:29 Imaging Results None recorded. [...] Address Organization Details Last Updated DateTime 12/04/2022 07237.32 g 34.5 kg/m2 170.18 cm Humza [place] [facility], 12/04/2022 10:59:37 Social History None recorded. Functional Status Question Answer Note LastModified by Organizat ion Details LastModified Time What is your level of alcohol consumption? Occasional [email or web address] Information not available 12/04/2022 Mental Status None recorded. Family History Nothing Reported. Medical History Condition Response Heart Attack (CT) Y Hypertension Y Past Encounters Encounter ID Performer Location Encounter Start Date Encounter Closed Date Diagnosis/Indication Diagnosis SNOMED-CT Code Diagnosis ICD10 Code Diagnosis IMO Codes Diagnosis Note [id number] ARIS CANO PA-C [facility] [address] [place] [phone] 12/04/2022 10:26:59 12/04/2022 11:36:36 Pain of right shoulder joint 0533237739 1538390 M25.511 Impingemen t syndrome of right shoulder region 8247402406 03421 M75.41 Health Concerns Section Related Observation LastModified by Organization Detai ls LastModified Time None Recorded Concern Status LastModified by Organization Details LastModified Time None Recorded Advance Directives Directive None Recorded Payers Insurance Date Sequence Insurance Name Policy Number Policy Quiñones Covered Member ID Quiñones Member ID Guarantor Name 12/04/2022 1 MEDICARE B-CT: NGS John Trevizo [id number] John Trevizo 12/04/2022 2 UNICARE [id number] John Trevizo [id number] John Trevizo Notes Date Note Type Note [...] ARIS CANO PA-C [address], [place], [address], [place] [facility] 12/04/2022 12:31:18
--- NOTE | 2025-04-26 | ECG_ITS ---
Test Reason : PREOP Blood Pressure : */* mmHG Vent. Rate : 56 BPM Atrial Rate : 56 BPM P-R Int : 206 ms QRS Dur : 88 ms QT Int : 416 ms P-R-T Axes : 45 -36 16 degrees QTcB Int : 401 ms Sinus bradycardia Left axis deviation Inferior infarct (cited on or before 10-May-2013) Abnormal ECG When compared with ECG of 10-May-2013 11:39, Premature atrial complexes are no longer Present Referred By: Carina Blackwell Electronically Signed By: NASRIN GRAF
[2025-04-26 13:15] VITALS: BP 123/73; PULSE 60; RESP 18; O2SAT 97; BMI 33.9
--- NOTE | 2025-04-26 13:28 | HO.ANESPROP2 ---
Documented by User: Carina Blackwell NP 05/03/25 12:38 HPI - Anesthesia Eval Consult details Narrative: 79yo M for Right L5-S1 MicroLumbar discectomy, 05/10/25 No recent illness No CP/SOB with activity limited by pain since 01/2025. Prior to was daily at the gym with treadmill, etc Follows [facility] Cardiology. Stable at 11/2024 office visit. Deemed optimized per 03/2025 addendum and ok'd to hold anticoags CAD s/p stents x 2 2012 DE ~ 30 years ago Afib on eliquis GERD: ppi daily controls ZUNI with bilat hearing aids PMFSH Active Problems Active Problems: All Active Problems Lumbosacral spondylosis (Acute) Lumbar degenerative disc disease (Acute) Lumbar disc herniation (Acute) CAD (coronary artery disease) (Acute) HTN (hypertension) (Acute) Dizziness (Acute) Low back pain with right-sided sciatica (Acute) Right sided sciatica (Acute) Atrial fibrillation (Acute) Rosacea (Acute) Past Medical History Medical History GERD (gastroesophageal reflux disease) Dizziness Low back pain with right-sided sciatica Right sided sciatica Atrial fibrillation Rosacea Arthritis Diverticulosis ZUNI (hard of hearing) On beta leif at home Elevated cholesterol Myocardial infarction CAD (coronary artery disease) HTN (hypertension) Family History Family History Mother No problems noted. Father No problems noted. Family history of problems with anesthesia: No Surgical History Surgical History Hx of angioplasty History of esophagogastroduodenoscopy (EGD) History of vasectomy History of excision of pilonidal cyst History of back surgery H/O colonoscopy (~07/02/20) History of heart artery stent History of Problems with Anesthesia: No Social History Social History Housing: House Are you a primary animal care taker to a significant other at home: No Do you presently have visiting nurse or other home services: No Patient Tobacco Use Status: Former Tobacco user Tobacco use type: Cigarette Years Smoked: 17 e-Cigarette/Vaping Use: Former Use Use of substances other than those prescribed or required for medical reasons: No Have you been hit, kicked, punched, or otherwise hurt by someone within the past year? If so, by whom?: No Spiritual Healthcare Practices: no Orthodoxy Healthcare Practices: no Cultural Healthcare Practices: no Are you DNR?: No Advance Directives Information Provided: Yes (as abov enote) Advance Directives on File: No service: No Current occupational status: retired Cognitive needs: No Hearing needs: Yes (bilateral) Vision needs: Yes (reading glasses) Meds Allergies Allergy/AdvReac Type Severity Reaction Status Date / Time No Known Allergies (No Known Allergy Verified 04/25/25 09:00 Allergies*) Home Medications ?Medication ?Instructions ?Recorded ?Confirmed ?Last Taken ?Type amlodipine 5 mg tablet 5 mg PO QAM 06/26/20 04/26/25 05/10/25 History aspirin 81 mg tablet,delayed 81 mg PO QAM 06/26/20 04/26/25 05/02/25 History release (Liliana Low Dose Aspirin) atenolol 25 mg tablet 25 mg PO QAM 06/26/20 04/26/25 05/10/25 History hydrochlorothiazide 25 mg tablet 25 mg PO QAM 06/26/20 04/26/25 05/09/25 History lisinopril 40 mg tablet 40 mg PO QAM 06/26/20 04/26/25 05/09/25 History multivitamin 1 tab PO QAM 06/26/20 04/26/25 05/09/25 History omeprazole 20 mg tablet,delayed 20 mg PO QAM 06/26/20 04/26/25 05/10/25 History release simvastatin 40 mg tablet 40 mg PO BEDTIME 06/26/20 04/25/25 05/09/25 History apixaban 5 mg tablet (Eliquis) 5 mg PO BID 08/30/24 04/25/25 05/07/25 History dronedarone 400 mg tablet (Multaq) 400 mg PO BID 08/30/24 04/25/25 05/09/25 History atenolol 25 mg tablet 12.5 mg PO BEDTIME 04/26/25 04/26/25 05/09/25 History Exam Height,Weight and Vital Signs: Height 5 ft 8 in Weight 101.151 kg Last Vital Signs Pulse 60 04/26/25 13:15 Resp 18 04/26/25 13:15 BP 123/73 04/26/25 13:15 Pulse Ox 97 04/26/25 13:15 O2 Del Method Room Air 04/26/25 13:15 Pertinent Lab Results Pertinent Lab Results: Laboratory Tests 04/26/25 14:21 WBC 8.2 Hgb 16.9 Hct 50.5 Plt Count 193 Sodium 143 Potassium 4.4 Chloride 108 Carbon Dioxide 28 BUN 26 H Creatinine 1.21 Narrative Narrative: EKG 04/2025 Vent. Rate : 56 BPM Atrial Rate : 56 BPM P-R Int : 206 ms QRS Dur : 88 ms QT Int : 416 ms P-R-T Axes : 45 -36 16 degrees QTcB Int : 401 ms Sinus bradycardia Left axis deviation Inferior infarct (cited on or before 10-May-2013) Abnormal ECG When compared with ECG of 10-May-2013 11:39, Premature atrial complexes are no longer Present ECHO 2022 1. Technically difficult d/t body habitus 2. LV size nml 3. LV wall thickness nml 4. Overall LV systolic function nml with EF 60-65% 5. Diastolic filling pattern nml 6. No evidence of WMA 7. LA size nml 8. RV mildly enlarged 9. RV sys function nml 10. Aortic sclerosis without stenosis 11. Trace aortic regurg 12. Trace mitral regurg 13. Accurate pulmo pressures cannot be determined d/t absence of TR jet Nuc Stress 2022 Summary 1. Myocardial perfusion imaging is normal without any fixed or reversible perfusion defect after exercise stress test at good functional capacity. 2. LV function is normal with an E.F. of 66 % at rest and 69 % with stress with normal wall motion and thickening. 3. EKG portion of the stress test is reported separately. Airway Mallampati Class: I TM Dist: >3cm Neck ROM: Full Loose/Missing/Broken Teeth: Yes (missing throughout, implants stable) Heart: irreg Lungs: CTAB Assessment and Plan Assessment Anesthesia Assessment: Anesthesia Plan Discussed and PAT Visit Final Anesthetic Review Family History of Problems with Anesthesia: No History of Problems with Anesthesia: No Documented by User: Darlene Pollard MD 05/10/25 08:09 [facility] Past Medical History Medical History GERD (gastroesophageal reflux disease) Dizziness Low back pain with right-sided sciatica Right sided sciatica Atrial fibrillation Rosacea Arthritis Diverticulosis ZUNI (hard of hearing) On beta leif at home Elevated cholesterol Myocardial infarction CAD (coronary artery disease) HTN (hypertension) Family History Family History Mother No problems noted. Father No problems noted. Surgical History Surgical History Hx of angioplasty History of esophagogastroduodenoscopy (EGD) History of vasectomy History of excision of pilonidal cyst History of back surgery H/O colonoscopy (~07/02/20) History of heart artery stent Social History Social History Housing: House Are you a primary animal care taker to a significant other at home: No Do you presently have visiting nurse or other home services: No Patient Tobacco Use Status: Former Tobacco user Tobacco use type: Cigarette Years Smoked: 17 e-Cigarette/Vaping Use: Former Use Use of substances other than those prescribed or required for medical reasons: No Have you been hit, kicked, punched, or otherwise hurt by someone within the past year? If so, by whom?: No Spiritual Healthcare Practices: no Orthodoxy Healthcare Practices: no Cultural Healthcare Practices: no Are you DNR?: No Advance Directives Information Provided: Yes (as abov enote) Advance Directives on File: No service: No Current occupational status: retired Cognitive needs: No Hearing needs: Yes (bilateral) Vision needs: Yes (reading glasses) Meds Allergies Allergy/AdvReac Type Severity Reaction Status Date / Time No Known Allergies (No Known Allergy Verified 04/25/25 09:00 Allergies*) Home Medications ?Medication ?Instructions ?Recorded ?Confirmed ?Last Taken ?Type amlodipine 5 mg tablet 5 mg PO QAM 06/26/20 04/26/25 05/10/25 History aspirin 81 mg tablet,delayed 81 mg PO QAM 06/26/20 04/26/25 05/02/25 History release (Liliana Low Dose Aspirin) atenolol 25 mg tablet 25 mg PO QAM 06/26/20 04/26/25 05/10/25 History hydrochlorothiazide 25 mg tablet 25 mg PO QAM 06/26/20 04/26/25 05/09/25 History lisinopril 40 mg tablet 40 mg PO QAM 06/26/20 04/26/25 05/09/25 History multivitamin 1 tab PO QAM 06/26/20 04/26/25 05/09/25 History omeprazole 20 mg tablet,delayed 20 mg PO QAM 06/26/20 04/26/25 05/10/25 History release simvastatin 40 mg tablet 40 mg PO BEDTIME 06/26/20 04/25/25 05/09/25 History apixaban 5 mg tablet (Eliquis) 5 mg PO BID 08/30/24 04/25/25 05/07/25 History dronedarone 400 mg tablet (Multaq) 400 mg PO BID 08/30/24 04/25/25 05/09/25 History atenolol 25 mg tablet 12.5 mg PO BEDTIME 04/26/25 04/26/25 05/09/25 History Exam Airway Mallampati Class: III Neck ROM: Limited Assessment and Plan Final Anesthetic Review NPO: Yes ASA Class: III Final Preanesthetic Review: No Changes in Pt Med Stat, Meds/Allgs Chart Reviewed, Consent Obtained/Reviewed and Anes Risks/Benef Reviewed Patient Risk: Intermediate Procedure Risk: Intermediate Anesthetic Plan Anesthetic Plan: GA and Agree w/ Assess. and Plan Disposition: Standard PACU
[2025-05-10] VITALS (9 sets, daily range): BP systolic 116–153; BP diastolic 62–78; PULSE 45–54; RESP 16–18; TEMP 36.1–36.4; O2SAT 96–100; BMI 34.1
--- NOTE | ~2025-05-10 | FL_ITS ---
EXAMINATION: XR FLUOROSCOPY WITH IMAGES CLINICAL INFORMATION: L5-S1 right discectomy COMPARISON: MRI 03/18/2025 TECHNIQUE: Fluoroscopy time: 4.5 seconds DAP: 5.2 mGy Images: 1 FINDINGS: Fluoroscopy provided for surgery. On the single image, there is a surgical instrument projected posteriorly at the level of the L5-S1 disc space. No radiologist present. FL/FL guidance in OR IMPRESSION: Fluoroscopy provided for surgery. See surgical report for details. Electronically signed by: Ry Srivastava MD 05/10/2025 04:20 PM [facility]
[2025-05-10] MEDS: Lactated Ringers 1,000 ML 100 ML IVCONT (06:54)
--- NOTE | 2025-05-10 08:53 | MHC.SHP ---
Pre-Procedural Eval Section A - 24 Hr Update-Section A only Date of Service: 05/10/25 The patient is an INPATIENT: No Changes since office visit: No Cold of Flu in the past 2 weeks, No New Medical Problems, No Changes in Medication and No Patient answered all questions The patient has been examined within 24 hours of the surgical procedure. The History & Physical has been completed within 30 days and I have reviewed it.: No Section B - Complete if H&P > 30 days Chief Complaint: Other intervertebral disc displacement, lumbar Allergies: Allergies Allergy/AdvReac Type Severity Reaction Status Date / Time No Known Allergies (No Known Allergy Verified 04/25/25 09:00 Allergies*) Review of Systems Sugical H&P ROS: Negative: Constitution, Cardiovascular, Respiratory, Neurological, Psychiatric, Hem-Onc, Allergic/Immunologic, Gastrointestinal, Genitourinary, Musculoskeletal, Integumentary, Endocrine and Eyes/Ears/Nose/Throat Exam Surgical H&P Exam: Normal: HEENT, Normal: Heart, Normal: Lungs, Normal: Extremities, Normal: Abdomen, Normal: Skin and Normal: Neurological (awake alert oriented x 3 ) Plan Diagnosis/Plan: Unchanged right L5-S1 microdiskectomy Time Spent With Patient Time: Total time managing care of this patient today ___5_ minutes.
--- NOTE | 2025-05-10 08:54 | P.DS_ITS ---
DS: Providers Provider Date of admission: Date of discharge: 05/10/25 Primary care physician: Petey Nunes MD Admitting clinician: Sam Church DS: Diagnosis Discharge Diagnosis (1) Lumbar disc herniation: Status: Acute DS: Summary Time Attestation Discharge Coordination Time (in mins): 4 Quality: Safe Use of Opioids Does Pt have an Active Cancer Diagnosis on the Problem List?: No Quality: Stroke Does the patient have a stroke diagnosis?: No Physical Exam Vital Signs: Vital Signs: Last Vital Signs Temp 97.4 F 05/10/25 06:55 Pulse 51 05/10/25 06:55 Resp 18 05/10/25 06:55 BP 153/78 H 05/10/25 06:55 Pulse Ox 96 05/10/25 06:55 O2 Del Method Room Air 05/10/25 06:55 BMI result Body Mass Index 34.1 Discharge Plan Discharge Patient Disposition: Home, Self-Care Referrals: Petey Nunes MD [Primary Care Provider, Internal Medicine] - 1 Week Discharge Medications: New docusate sodium [Colace] 100 mg capsule 100 mg PO BID Qty: 20 0RF oxycodone 5 mg tablet 5 mg PO Q4H PRN (Reason: pain) Qty: 20 0RF Rx Instructions: Partial Fill upon patient request. Continued multivitamin Tablet 1 tab PO QAM atenolol 25 mg Tablet 25 mg PO QAM amlodipine 5 mg Tablet 5 mg PO QAM simvastatin 40 mg Tablet 40 mg PO BEDTIME hydrochlorothiazide 25 mg Tablet 25 mg PO QAM lisinopril 40 mg Tablet 40 mg PO QAM omeprazole 20 mg Tablet,Delayed Release (Dr/Ec) 20 mg PO QAM atenolol 25 mg Tablet 12.5 mg PO BEDTIME Multaq 400 mg tablet 400 mg PO BID gabapentin 300 mg capsule 300 mg PO BEDTIME Qty: 90 0RF Held aspirin [Liliana Low Dose Aspirin] 81 mg Tablet,Delayed Release (Dr/Ec) 81 mg PO QAM Hold Instructions: Resume on 05/17/25. You may resume aspirin 1 week after surgery Eliquis 5 mg tablet 5 mg PO BID Hold Instructions: Resume on 05/13/25. You may resume Eliquis 3 days after surgery Discharge Orders: Discharge Order (Routine); Ordered 05/10/25 Ordered By: Jose David Nolasco Diet: Advance to usual diet Activity on Discharge: As tolerated Activity Restrictions/Additional Instructions: After your spinal surgery we ask you to observe the following restrictions/guidelines: Activity: It is normal to feel some discomfort as you increase your activity, but that will improve with time. We ask you avoid heavy lifting or acitivities that cause pain. As a general rule, 8lbs is a safe limit for lifting right after surgery. Walk as much as you feel comfortable but not to exhaustion. You will feel extra tired the first few days after surgery. Stay well hydrated. It is OK to walk up and down stairs You may return to driving when you are off narcotics (such as vicodin, oxycodone, dilaudid, etc), and you are back to normal functional capacity. If you have any concerns please check with office before driving. Return to work is specific to each patient and each surgery, so please speak with your doctor/PA at first follow up. Please bring paperwork such as FMLA at that time if you need it filled out. Medications: You may resume Eliquis 3 days after surgery and aspirin 7 days after surgery For optimum pain control, it is best to start with a combination of 500 mg of Tylenol every 4 hours with 600 mg of Motrin every 8 hours, and use narcotics as needed in between for breakthrough pain. We will give you a short supply of narcotics after surgery (usually one weeks worth). If you need more please call the office but do not use more than prescribed. You will need to give our office 48 hours notice if you need narcotics refilled and we do not fill narcotics on weekends or evenings. If you are on a narcotic, it is a good idea to take a stool softener such as colace or senna to avoid constipation If you take blood thinner such as aspirin, Plavix, Coumadin, Effient, Eliquis etc for conditions such as Afib, DVT, Pulmonary embolus, coronary disease, stents etc please speak with your surgeon about specific details as to when you can resume these medications. Follow up: Please call the office, , after surgery to arrange a 3 week follow up for wound check. Wound Care: You may remove your dressing on the first day after surgery. ?You may ?leave open to air. Please do not remove the steri strips underneath. they will fall off on their own in one week. IT IS NORMAL FOR THE WOUND TO OOZE OR BE BLOODY FOR A FEW DAYS AFTER SURGERY. ?IF THIS HAPPENS JUST PLACE NEW DRESSING OVER IT TO AVOID STAINING CLOTHES. You may shower on post op day # 1 We ask that you do not let the water soak the wound. If it does get wet, just towel dry lightly. Please do not scrub your incision or place any type of chemical/ointment on the wound. No tub baths, pools or jacuzzis for one month. If you have any leaking or redness from your wound, or fevers, please call office Print Language: Kiswahili
--- NOTE | 2025-05-10 11:15 | P.OP_ITS ---
Operative Note Operative Note Date of Service: 05/10/25 Narrative: Preoperative Diagnosis: L5 spinal stenosis/lateral recess stenosis Operation: Left L5 Laminotomy, Partial facetectomy with use of microscope Consent Informed Consent was obtained for this operation. I have explained the nature, purpose and benefits of the operation. I have discussed the risks and benefit of the operation including possible complications or adverse events with patient/family. Alternative(s) were discussed with the patient with their relative benefits and risks as well as the consequences of not accepting the operation were included in obtaining consent. Surgeon: DOLLY BELLO MD, PHD Procedure Assisted By: Jose David Rojas Description of Procedure This patient is suffering from a left S1 radiculopathy. An MRI shows possible disc bulge compressing the S1 nerve root in combination with lateral recess stenosis.. The patient was offered a decompression. The procedure complications were explained. The patient was consented. The patient was brought to the operating room and endotracheally intubated. The patient was turned in prone position on the Cristi frame. Prep and drape was done followed by timeout. The Physician medical technician assistant provided access. A mid lumbar incision was made followed by release of the paravertebral muscle on the left side to expose the L5 S1 lamina and facet joints. An intraoperative x-ray was obtained to confirm the correct level. The microscope was brought in. I took over the procedure. The high-speed drill was used to do a L5 laminotomy until flavum ligament was reached. A #2 Kerrison was used to expand the laminotomy near flush to the pedicles and to include a partial facetectomy. The flavum ligament was opened and resected with a #3 Kerrison to decompress the underlying thecal sac. The flavum ligament was removed to decompress the lateral recess and the exiting S1 nerve root. Now this process was not as easy as we anticipated. A lot of scar tissue was under the S1 nerve root and over the disc space. The scar tissue looked similar is nerve tissue and therefore I did not attempt to sharply incise this tissue. I tried to create a plane under the nerve root but was unsuccessful. The nerve root was well decompressed at its origin and in the lateral recess. However, a diskectomy was not attempted as this was too dangerous.The microscope was removed. Hemostasis was done. The physician medical technician assistant close the incision in 2 layers. Steri-Strips were used to approximate incision. An OpSite with Tegaderm was used to cover the incision. All sponge needle counts were correct. Patient was extubated and transported in stable is to recovery room. Anesthesia: General Estimated Blood Loss (ml): 30 Complications: None Duration of Surgery: 60 Minutes Postoperative Plan: Discharge to home
== END 2025-05-10 13:28 | disposition home or self-care (01) ==
PROVIDERS: PCP Internal Medicine; Visit Provider Neurological Surgery
PROC: (CPT 63047; principal; 2025-05-10 08:50)
DX: M51.26 Other intervertebral disc displacement, lumbar region (principal); M54.17 Radiculopathy, lumbosacral region; M48.061 Spinal stenosis, lumbar region without neurogenic claudication; I25.10 Atherosclerotic heart disease of native coronary artery without angina pectoris; Z95.5 Presence of coronary angioplasty implant and graft; I25.2 Old myocardial infarction; E78.00 Pure hypercholesterolemia, unspecified; I10 Essential (primary) hypertension; I48.91 Unspecified atrial fibrillation; Z79.01 Long term (current) use of anticoagulants; Z79.82 Long term (current) use of aspirin; Z79.899 Other long term (current) drug therapy; Z87.891 Personal history of nicotine dependence
CPT/HCPCS: 63047; 93005; J0131; J0690; J1100; J1885; J2003; J2405; J2704; J3010

== ENCOUNTER → 2025-05-10 06:39 | Outpatient (BNV) | payer MEDICARE, OTHER, SELFPAY | PROVIDERS: PCP Internal Medicine; Visit Provider Neurological Surgery | DX: M51.26 Other intervertebral disc displacement, lumbar region (principal) | CPT/HCPCS: 63047; 99499 ==